=== PATIENT | male | born 1975 | race Caucasian/White ===

== ENCOUNTER → 2017-09-23 | Outpatient (CLI) | payer MEDICARE ==
[2017-09-23 15:33] LABS: HCT 46.6 % (39.0-53.0); HGB 15.7 gm/dL (13.0-17.5); MCHC 33.6 g/dL (31.0-37.0); MCV 89.1 fL (80.0-100.0); Platelet Count 224 k/uL (150-450); RBC 5.23 m/uL (4.30-5.90); RDW 13.4 % (11.5-15.5); WBC 9.5 k/uL (3.8-10.6)
--- NOTE | 2017-09-23 16:00 | CT ---
EXAMINATION TYPE: CT lower extremity RT wo con DATE OF EXAM: 09/23/2017 COMPARISON: NONE HISTORY: Painful right foot and ankle CT DLP: 318 mGycm Automated exposure control for dose reduction was used. Helical acquisition obtained through the righ t ankle. Coronal and sagittal reconstructions performed, three-dimensional reconstructions on an [employer] workstation FINDINGS: Postop changes are present, posttraumatic changes status post open reduction internal fixation for di stal diaphyseal tibial fracture and interval removal of patient's hardware. Old left fibular fracture appears healed and is angulated. The distal tibia shows areas of abnormal cortical thickening and bony excrescences as well as fissure s noted within the cortex posteriorly and also laterally more inferiorly which extend into the medull jean carlos canal. The shape of the shaft of the tibia is irregular, medullary canal also somewhat irregular with the cortex showing heterogeneous density. Heterotopic bone formation is thought present. Osteoarthritic changes present at the tibiotalar joint, subchondral geode formation is present, there is marginal spurring and joint space loss. Lucency present within the medullary space of the posteri or calcaneus is noted. No acute fracture or dislocation is evident. Bone mineralization appears reduc ed. Achilles tendon is thought to be intact. There is likely rodlike foreign body present within the soft tissues between the mid diaphyseal tibia and fibula there is only partially included on the exam. IMPRESSION: DIFFICULT TO EXCLUDE OSTEOMYELITIS, SERGIO'S ABSCESS. OSTEOARTHRITIS. ADDITIONAL FINDINGS ABOVE.
[2017-09-23 17:48] LABS: Erythrocyte Sedimentation Rate 8 mm/hr (0-15)
== END | disposition home or self-care (01) ==
LOC: RADCTMAIN 15:08
PROVIDERS: ATTEND Orthopaedic Surgery
DX: M19.071 Primary osteoarthritis, right ankle and foot (principal); Z98.890 Other specified postprocedural states
CPT/HCPCS: 83520; 85027; 85652; 86140

== ENCOUNTER 2017-10-04 09:58 | Day surgery (SDC) | payer MEDICARE ==
[2017-10-01 13:16] VITALS: BMI 38.0
[~2017-10-04 09:58] MED LIST: CLINDAMYCIN 900 MG in DEXTROSE 5% IN WATER 50 ML IVPB ONE; DEXAMETHASONE SOD PHOSPHATE 10 MG/ML 1 ML VIAL IV ONE; MIDAZOLAM 2 MG/2 ML VIAL IV PRN; ONDANSETRON 4 MG/2 ML VIAL IVP ONE; SCOPOLAMINE 1.5MG/72HR PATCH TRANSDERM ONE
[2017-10-04] MEDS ORDERED: LIDOCAINE 1% 20 ML VIAL (10MG/ML) FOR IV START INTRADERMA ONE (10:48)
[2017-10-04] MEDS: LACTATED RINGERS 1,000 ML IV SCH (10:48)
[2017-10-04] MEDS ORDERED: MIDAZOLAM 2 MG/2 ML VIAL IVP ONE (11:15)
[2017-10-04] MEDS ORDERED: fentaNYL (PF) 50 MCG/ML 2 ML AMP IVP ONE (11:40)
[2017-10-04] MEDS ORDERED: PROPOFOL 10 MG/ML 20 ML VIAL IV ONE (12:37)
[2017-10-04] MEDS ORDERED: LIDOCAINE 1% INJ 10MG/ML (20 ML MDV) ONE (12:37)
[2017-10-04] MEDS ORDERED: fentaNYL (PF) 50 MCG/ML 2 ML AMP ONE (12:37)
[2017-10-04] MEDS ORDERED: MIDAZOLAM 2 MG/2 ML VIAL ONE (12:37)
[2017-10-04] MEDS ORDERED: MORPHINE SULFATE 10 MG/ML SYRINGE ONE (12:37)
[2017-10-04] MEDS ORDERED: NEOSTIGMINE 1 MG/ML 10 ML VIAL ONE (12:37)
[2017-10-04] MEDS ORDERED: GLYCOPYRROLATE 0.2 MG/ML 2 ML VIAL ONE (12:37)
[2017-10-04] MEDS ORDERED: ROCURONIUM BROMIDE 10 MG/ML 10 ML VIAL IV ONE (12:37)
[2017-10-04] MEDS ORDERED: SUCCINYLCHOLINE CHLORIDE 100 MG/5 ML SYR IV ONE (12:37)
[2017-10-04] MEDS ORDERED: LACTATED RINGERS 1,000 ML IV ONE (13:15)
--- NOTE | 2017-10-04 14:53 | FL ---
Fluoroscopy HISTORY: Osteoarthritis posttraumatic 30 seconds fluoroscopy time supplied to the referring clinician. 8 intraoperative C-arm images docum ent the procedure. See dictated report from orthopedic surgery.
[2017-10-04] MEDS: fentaNYL (PF) 50 MCG/ML 2 ML AMP IV PRN ×4 (14:55→15:16)
[2017-10-04] MEDS ORDERED: HYDROcodone/APAP 5-325MG 1 EACH TAB PO PRN (15:14)
[2017-10-04] MEDS ORDERED: MORPHINE SULFATE/PF 10MG/10ML VL IVP PRN ×2 (15:14)
--- NOTE | 2017-10-04 15:14 | P.OP ---
Date of Procedure: 10/04/17 Preoperative Diagnosis: 1. Posttraumatic right ankle arthritis 2. History of prior open tibia and fibula fracture 3. Malunion tibia and fibula 4. Anterior ankle impingement 5. Current every day cigarette smoker 6. Obesity with BMI of 38 Postoperative Diagnosis: Same Procedure(s) Performed: 1. Right ankle cheilectomy 2. Curettage of right distal tibia cyst and injection of bone void filler 3. Application of short leg splint by physician Anesthesia: CARONA Surgeon: Myron Laguna Estimated Blood Loss (ml): 50 IV fluids (ml): 1,200 Pathology: other (Deep Cultures) Condition: stable Disposition: PACU Indications for Procedure: The patient is a 42-year-old male with a medical history significant for being a current every day cigarette smoker. He sustained an open tibia fracture in the past requiring multiple procedures both locally and in [place]. He subsequently had a second fracture that required additional surgery. He ultimately went on to heal his fractures and soft tissue wounds. He developed progressive degenerative changes in the ankle resulting from his injury and malunion. He came to see me to discuss treatment. Most of the patient's symptoms were in the anterior aspect of the ankle. There was a large prominent osteophyte over the anterolateral aspect of the ankle that was tender. He had pain with passive dorsiflexion of the ankle and his x-ray and computed tomography scan showed an osteophyte off the dorsal talar neck. He also had a cyst in the distal tibia which the radiologist read as a possible chronic osteomyelitis on his computed tomography scan. Inflammatory labs were normal. Due to the patient having mostly anterior impingement, a prominent cyst, and a prominent osteophyte off the dorsal talar neck I recommended performing a cheilectomy of the dorsal talar neck, obtaining deep cultures of the distal tibial cyst and that the cyst appeared to be not infected injecting the cyst. The patient agreed to this as he has failed a long course of nonsurgical treatment. The patient understands the potential risks and complications of surgery including but not limited to risk of anesthesia, superficial infection, deep infection, delayed wound healing, damage to blood vessels or nerves, intraoperative fracture, postoperative fracture, progression of arthritis, ankle instability, worsening of his pain, chronic pain, chronic swelling, need for further surgery including ankle fusion, DVT, PE, inability to regain preinjury level of function, generalized to satisfaction of surgery, and possibly loss of life or limb. The patient acknowledges the fact that this procedure is only addressing the anterior ankle impingement and that if he has widespread arthritis throughout the ankle he may continue to have symptoms. He provided his verbal and written consent to go forward with the above-mentioned procedure. Description of Procedure: The patient was identified in preoperative holding and the correct right leg was marked with my initials. I reviewed the consent form with the patient and his family and all their questions were answered. The patient was then brought back to the operating room by anesthesia. He was positioned on the OR table and a general anesthetic and preoperative antibiotics were administered. A tourniquet was applied to the proximal aspect of the right leg. All bony prominences were well-padded. A bump was placed under the buttock internally rotating the leg to neutral. The left leg was secured to the table with foam and tape. A ramp was placed under the right leg. The right leg was then prepped and draped in the standard sterile fashion. Prior to starting surgery timeout was performed identifying the correct patient, operative extremity, and procedure. The patient's leg was then elevated, exsanguinated with an Esmarch bandage, the tourniquet was inflated to 250 mmHg. I began by outlining an incision over the anterolateral aspect of the distal tibia. The incision was centered along the lateral aspect of the distal tibia and extended across the ankle joint in line with the fourth metatarsal. Skin incision was made with a 15 blade scalpel. Dissection was carried down carefully to the subcutaneous tissue with tenotomy scissors. A branch of the superficial peroneal nerve was identified and carefully retracted. The sensory retinaculum was identified and incised longitudinally in line with the skin incision. The anterior compartment tendons were retracted medially. The ankle joint capsule was incised in line with the skin incision. There was a pedunculated osteophyte off the dorsal lateral talar neck which was immediately visible. There were also several loose bodies within the joint capsule which were sharply excised. Using a curette and Armani the dorsal talar neck osteophyte was removed. C-arm fluoroscopy was used and the remaining lateral dorsal osteophyte was removed with a curved osteotome until there were no impinging lateral lesions. The anterior plafond was left intact to prevent anterior escape of the talus. The distal portion of the medial incision was marked out. I made a skin incision over the scar on the distal medial tibia and medial malleolus. Dissection was carried down carefully through the subcutaneous tissue to the anterior aspect of the ankle joint capsule which was incised. Medial impinging osteophytes were carefully removed with a curved osteotome until there did not appear to be any impinging lesions. Fluoroscopy was used to verify that the impinging osteophytes had been removed. Clinically there was no impingement between the dorsal talar neck and anterior plafond and maximum dorsiflexion. A 4.5 mm drill bit was then used to perforate the medial cortex the distal tibia. There is a small amount of serous fluid which was swabbed and cultured from the cyst. A curet was used to open up the cyst cavity and a small pituitary Armani was used to remove tissue from within the cyst. A 10 mm kit of pro-dense was mixed and then used to inject the cyst. Fluoroscopy verified injection of the radio opaque bone void filler into the distal tibia. Final fluoroscopic images showed no acute fractures. Both wounds were copiously irrigated. The capsule was closed medially with 0 Vicryl. The deep subcu was reapproximated using 3-0 Monocryl. The skin was closed with 3-0 nylon. Laterally the joint capsule was closed with 0 Vicryl. The retinaculum was closed with 2-0 Vicryl. The subcu was closed with 3-0 Monocryl. The skin was closed with 3-0 nylon. All instrument, sponge, and sharp counts were correct. The tourniquet was let down. A sterile dressing consisting of Betadine soaked Adaptic, 4 x 4, and web roll was applied. The drapes were taken down and a well-padded bulky Fernandez splint was placed. The patient was awoken from his anesthetic, transferred from the OR table to the [facility], and brought to PACU having tolerated the procedure well. Plan: The patient can discharge home as an outpatient. He is to remain strictly nonweightbearing on his right leg in his splint at all times until his follow-up appointment in 2 weeks.
[2017-10-04] MEDS ORDERED: MEPERIDINE 50 MG/ML SYRINGE IVP ONE (15:21)
[2017-10-04] MEDS ORDERED: diphenhydrAMINE 50 MG/ML 1 ML VIAL IVP ONE (15:23)
[2017-10-04] MEDS ORDERED: HYDROcodone/APAP 10-325MG 1 EACH TAB PO ONE (15:58)
[2017-10-04] MEDS ORDERED: MORPHINE SULFATE 10 MG/ML SYRINGE IVP ONE (16:52)
[2017-10-04] MEDS: HYDROcodone/APAP 5-325MG 1 EACH TAB PO PRN (19:59)
[2017-10-04] MEDS: MORPHINE SULFATE/PF 10MG/10ML VL IVP PRN (22:15)
[2017-10-05] MEDS: MORPHINE SULFATE/PF 10MG/10ML VL IVP PRN ×3 (01:01→09:43)
[2017-10-05] MEDS: HYDROcodone/APAP 5-325MG 1 EACH TAB PO PRN ×2 (02:03→07:51)
[2017-10-05] MEDS: LACTATED RINGERS 1,000 ML IV SCH (04:56)
[2017-10-05 08:49] VITALS: PULSE 92; RESP 20; TEMP 98
[2017-10-05] MEDS ORDERED: oxyCODONE-APAP 5-325MG 1 EACH TAB PO PRN (08:53)
--- NOTE | 2017-10-05 08:57 | P.PN ---
Subjective Progress Note Date: 10/05/17 The patient is complaining of throbbing pain in his right ankle. He denies calf or thigh pain. He denies chest pain or shortness of breath. Objective - Vital Signs Vital signs: Vital Signs Temp 98 F 10/05/17 07:00 Pulse 92 10/05/17 07:00 Resp 20 10/05/17 07:00 BP 183/89 10/05/17 07:00 Pulse Ox 93 L 10/05/17 07:00 Intake & Output 10/04/17 10/05/17 10/05/17 18:59 06:59 18:59 Intake Total 2005 500 Output Total 600 550 Balance 1406 -550 500 Weight 127.006 kg Intake: IV 2005 Oral 500 Output: Urine 550 550 Estimated Blood Loss 50 Other: Voiding Method Urinal Urinal # Voids 2 - Exam On inspection of the right leg there is a clean-appearing bulky Fernandez splint with no drainage or saturated blood. The tips the toes are warm and well perfused with brisk capillary refill. There is no pain with passive range of motion of the toes. Sensation is intact to light touch at the tips of the toes. Assessment and Plan Plan: Postoperative day #1 status post right ankle cheilectomy, aspiration, curettage , and grafting of distal tibia cyst. 1. Strict nonweightbearing right lower extremity 2. Following intraoperative cultures which are negative at this point 3. Can discharge home today when his pain is adequately controlled and he passes physical therapy
--- NOTE | 2017-10-05 09:00 | P.DS ---
Providers Date of admission: 10/04/2017 Expected date of discharge: 10/05/17 Attending physician: Myron Laguna Primary care physician: [facility] Course: The patient is a 42-year-old male who is had multiple injuries and surgeries on his right leg. He developed anterior ankle impingement and posterior Mcclure ankle arthritis. He had a computed tomography scan which showed a cyst in the distal tibia which the radiologist raised the concern for possible deep infection. Since most of the patient's symptoms were from anterior ankle impingement I recommended performing a cheilectomy. I also recommended taking deep cultures from within the medullary canal of the distal tibia and injecting with bone cement. Following an uncomplicated surgery the patient was admitted overnight for pain control. On postoperative day #1 his pain is controlled. He is going to be transitioned from IV to oral pain medications. He can discharge home when his pain is adequately controlled and he passes physical therapy. Plan - Discharge Summary Discharge Rx Participant: Yes New Discharge Prescriptions: New HYDROcodone/APAP 10-325MG [[place] 10-325] 1 tab PO Q4HR PRN #50 tab PRN Reason: Pain Aspirin 325 mg PO BID #28 tab Docusate [Colace] 100 mg PO BID #28 capsule oxyCODONE HCL/ACETAMINOPHEN [Percocet 5-325 mg] 1 tab PO Q4HR PRN #30 tab PRN Reason: Severe Pain No Action buPROPion HCL [Wellbutrin XL] 300 mg PO DAILY Simvastatin 40 mg PO DAILY Lisinopril [Zestril] 20 mg PO DAILY HYDROcodone/APAP 5-325MG [[place] 5-325] 1 tab PO Q4HR PRN PRN Reason: Pain Discharge Medication List HYDROcodone/APAP 5-325MG [[place] 5-325] 1 tab PO Q4HR PRN 10/01/17 [History] Lisinopril [Zestril] 20 mg PO DAILY 10/01/17 [History] Simvastatin 40 mg PO DAILY 10/01/17 [History] buPROPion HCL [Wellbutrin XL] 300 mg PO DAILY 10/01/17 [History] Aspirin 325 mg PO BID #28 tab 10/04/17 [Rx] Docusate [Colace] 100 mg PO BID #28 capsule 10/04/17 [Rx] HYDROcodone/APAP 10-325MG [[place] 10-325] 1 tab PO Q4HR PRN #50 tab 10/04/17 [Rx] oxyCODONE HCL/ACETAMINOPHEN [Percocet 5-325 mg] 1 tab PO Q4HR PRN #30 tab [Rx] Follow up Appointment(s)/Referral(s): Myron Laguna MD [Medical Doctor] - 2 Weeks Activity/Diet/Wound Care/Special Instructions: 1. Non-weight bearing on your right leg 2. Keep splint clean and dry 3. Ice and elevate your leg 4. Take aspirin 325 mg twice a day to prevent blood clots. 5. Follow-up in office in 2-weeks 6. NEXT DOSE OF PAIN MEDICATION CAN BE TAKEN AT 8PM. 7. ELEVATE LEG HIGHER THAN YOUR HEART. Discharge Disposition: HOME SELF-CARE
[2017-10-05 12:25] VITALS: BP 120/80
--- NOTE | 2017-10-05 15:14 | CONS ---
CONSULTATION DATE OF CONSULTATION: October 05, 2017. REASON FOR CONSULTATION: Medical management requested by Dr. Laguna. CONSULTATION: This is a 42-year-old patient who underwent surgery on the right ankle. Chronic stable medical conditions include hypertension, hyperlipidemia, obesity. The patient is on Wellbutrin for smoking, element of depression at home. The patient's depression is also stable. The patient has had some pain at the operative site. The patient is on disability. Denies any chest pain or shortness of breath. The patient did tolerate his meals today. No nausea, vomiting. REVIEW OF SYSTEMS: CONSTITUTIONAL: None. HEENT none. Respiratory none. Cardiovascular none. Gastrointestinal none. Genitourinary: None. Musculoskeletal: Pain in the right ankle. Dermatological: Tattoos. Lymphatics none. Psychiatry none. Neurological: None. Psychiatry: Depression controlled. PAST MEDICAL HISTORY: Of hypertension, hyperlipidemia, depression, nicotine dependence. PAST SURGICAL HISTORY: Right leg fracture surgery, left rotator cuff repair. Past psych history is some anxiety and depression. SOCIAL HISTORY: The patient has quit for 15 years, a few months ago started smoking a pack a day. The patient lives with her father. Is not employed. On disability. Alcohol occasionally. FAMILY HISTORY: Reviewed, noncontributory to presentation. HOME MEDICATIONS: 1. Wellbutrin XL 300 mg a day. 2. Zestril 20 mg a day. 3. Percocet. 4. Aspirin for DVT prophylaxis. ALLERGIES: PENICILLIN. PHYSICAL EXAMINATION: On examination, temperature 98, pulse 92, respiratory 20, blood pressure 183/89, pulse ox 98% on room air. Blood pressure of 114/54. GENERAL APPEARANCE: Well built, BMI 38. Sitting up in bed comfortable. Eyes: Pupils equal. Conjunctivae normal. HEENT external appearance of nose and ears normal. Oral cavity normal. Neck JVD not raised. Mass not palpable. Respiratory effort lungs are clear. Cardiovascular 1st and 2nd sounds normal. No edema. ABDOMEN: Soft and nontender. Liver and spleen not palpable. Lymphatics: No lymph nodes palpable in the neck and axilla. PSYCHIATRY: Alert and oriented times three. Mood and affect normal. Neurological: Pupils equal. Cranial nerves grossly intact. Power and sensation grossly intact. Extremities: Right leg in a cast. Dermatological: Several tattoos are present. INVESTIGATIONS: White count 9.5, hemoglobin 15.7. ASSESSMENT: 1. Right ankle surgery. 2. Obesity BMI 38. 3. Hyperlipidemia. 4. Essential hypertension. 5. Depression/anxiety not otherwise specified. 6. Chronic nicotine dependence, patient is a cigarette smoker. PLAN: Patient's home medications are to be resumed. The patient is to continue Wellbutrin both for depression and smoking cessation. Patient also did get a nicotine patch. Did talk to patient about weight loss measures and should follow up with the dietitian, ask him to control his calories. Smoking cessation was discussed with the patient including long-term affects including healing of his surgery. At least 3 minutes was spent for this. Thank you Dr. Laguna. Copy to Dr. Aren Manjarrez in [facility]. Thank you, Dr. Laguna. MMERNESTINEL / VANESAN: [id number] /
== END 2017-10-05 13:10 | disposition home or self-care (01) ==
LOC: OR 09:58 → 3SUR 18:29 → OR 10-05 13:10
PROVIDERS: ATTEND Orthopaedic Surgery
DX: M19.171 Post-traumatic osteoarthritis, right ankle and foot (principal); M25.771 Osteophyte, right ankle; M85.461 Solitary bone cyst, right tibia and fibula; M24.071 Loose body in right ankle; M25.871 Other specified joint disorders, right ankle and foot; F17.210 Nicotine dependence, cigarettes, uncomplicated; E66.9 Obesity, unspecified; Z68.38 Body mass index [BMI] 38.0-38.9, adult; I10 Essential (primary) hypertension; E78.5 Hyperlipidemia, unspecified; F41.9 Anxiety disorder, unspecified; F32.9 Major depressive disorder, single episode, unspecified; Z79.1 Long term (current) use of non-steroidal anti-inflammatories (NSAID); Z79.891 Long term (current) use of opiate analgesic; Z79.899 Other long term (current) drug therapy; Z88.0 Allergy status to penicillin
CPT/HCPCS: 28100; 27620; 27635; C1713; J2250; J1200; J1100; J2710; J2175; J2270 ×3; J2405; J2001; J3010; J0330; J2704

== ENCOUNTER → 2019-05-21 | Outpatient (CLI) | payer MEDICARE, OTHER ==
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
[2019-05-21 12:05] VITALS: BP 131/87; PULSE 84; TEMP 97.7; BMI 46.6
== END ==
LOC: BARWHC3 10:30
PROVIDERS: ATTEND Surgery Plastic and Reconstructive Surgery
DX: Z48.815 Encounter for surgical aftercare following surgery on the digestive system (principal); F17.210 Nicotine dependence, cigarettes, uncomplicated
CPT/HCPCS: 99211

== ENCOUNTER → 2019-05-28 | Outpatient (CLI) | payer MEDICARE, OTHER ==
[2019-05-28 15:31] LABS: HCT 47.1 % (39.0-53.0); MCH 31.9 pg (25.0-35.0); MCHC 33.9 g/dL (31.0-37.0); MCV 94.3 fL (80.0-100.0); Mean Platelet Volume 6.4; Platelet Count 226 k/uL (150-450); RDW 13.3 % (11.5-15.5); WBC 7.7 k/uL (3.8-10.6)
[2019-05-28 15:35] LABS: INR 0.9 (<1.2); Partial Thromboplastin Time 24.7 sec (22.0-30.0)
[2019-05-28 20:45] LABS: % Iron Saturation 31.18 (15.00-50.00); African American GFR (CKD) 104.9 (60.0-200.0); Albumin 4.6 g/dL (3.80-4.90); Albumin/Globulin Ratio 2.09 (1.60-3.17); Calcium 9.7 mg/dL (8.7-10.3); Chol/HDL Ratio 4.02; Globulin 2.2 g/dL (1.6-3.3); LDL Cholesterol,Calculated 89.2 mg/dL (0.0-131.0); Magnesium 1.6 mg/dL (1.5-2.4); Non-African American GFR(CKD) 90.5 (60.0-200.0); Phosphorus 4.2 mg/dL (2.4-5.1); Potassium 4.3 mmol/L (3.5-5.5); Total Bilirubin 0.4 mg/dL (0.3-1.2); Total Protein 6.8 g/dL (6.2-8.2); VLDL Calculation 52.8 mg/dL (5.00-40.00)
[2019-05-28 20:53] LABS: Ferritin 37.8 ng/mL (22.0-322.0)
[2019-05-28 20:55] LABS: Folate, Serum 6.5 ng/mL
[2019-05-29 04:01] LABS: Hemoglobin A1C 5.5 % (4.0-6.0)
[2019-05-29 12:29] LABS: Zinc, Serum 89 ug/dL (60-130)
[2019-05-30 14:40] LABS: Vitamin A 52 ug/dL (38-106)
== END | disposition home or self-care (01) ==
LOC: LABWHC1 14:36
PROVIDERS: ATTEND Surgery Plastic and Reconstructive Surgery
DX: E66.01 Morbid (severe) obesity due to excess calories (principal); E21.1 Secondary hyperparathyroidism, not elsewhere classified; E89.1 Postprocedural hypoinsulinemia; D50.9 Iron deficiency anemia, unspecified; K90.9 Intestinal malabsorption, unspecified; E55.9 Vitamin D deficiency, unspecified; K74.1 Hepatic sclerosis; N19 Unspecified kidney failure; K50.90 Crohn's disease, unspecified, without complications
CPT/HCPCS: 36415; 80053; 80061; 82306; 82525; 82607; 82728; 82746; 83036; 83540; 83550; 83735; 83970; 84100; 84134; 84255; 84425; 84443; 84590; 84630; 85027; 85610; 85730

== ENCOUNTER 2019-06-22 11:21 | Day surgery (SDC) | payer MEDICARE, OTHER ==
[2019-06-18 13:07] VITALS: BMI 44.7
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
[~2019-06-22 11:21] MED LIST changes: -CLINDAMYCIN 900 MG in DEXTROSE 5% IN WATER 50 ML IVPB ONE; -DEXAMETHASONE SOD PHOSPHATE 10 MG/ML 1 ML VIAL IV ONE; +LACTATED RINGERS 1,000 ML IV SCH; +LIDOCAINE 1% 20 ML VIAL (10MG/ML) FOR IV START INTRADERMA PRN; -MIDAZOLAM 2 MG/2 ML VIAL IV PRN; -ONDANSETRON 4 MG/2 ML VIAL IVP ONE; -SCOPOLAMINE 1.5MG/72HR PATCH TRANSDERM ONE
[2019-06-22 11:43] VITALS: TEMP 98.4
--- NOTE | 2019-06-22 12:25 | P.PCN ---
Date of Procedure: 06/22/19 Description of Procedure: PREOPERATIVE DIAGNOSIS: Gastroesophageal reflux disease. Morbid obesity. POSTOPERATIVE DIAGNOSIS: Morbid obesity. Gastritis. Gastroesophageal reflux disease. OPERATION: Esophagogastroduodenoscopy with biopsies along antrum. SURGEON: Lea Garcia MD ANESTHESIA: MAC. INDICATIONS: The patient is a 43-year-old male who presents with a history of reflux disease. Benefits and risks of the procedure were described. Informed consent was obtained. DESCRIPTION: The patient was brought into the endoscopy suite and laid in the left lateral decubitus position. An Olympus gastroscope was passed along the posterior oropharynx down to the distal esophagus where the squamocolumnar junction was encountered at 45 cm from the incisors. The stomach was entered and no bile reflux was found. Additional findings are listed below. Biopsies with cold forceps were obtained of the antrum. The first through third portion of the duodenum was examined and unremarkable. Retroflexion of the scope confirmed Hill grade 2 lower esophageal valve. The squamocolumnar junction demonstrated LA grade B erosive esophagitis. The stomach was desufflated. The patient tolerated the procedure well. FINDINGS: Squamocolumnar junction 45 cm from the incisors. Diaphragmatic hiatus at 45 cm. Hill grade 2 lower esophageal valve. LA grade B erosive esophagitis. No active duodenitis. Chronic gastritis RECOMMENDATIONS: Upper endoscopy as needed. Plan - Discharge Summary Discharge Rx Participant: No New Discharge Prescriptions: No Action Simvastatin 40 mg PO HS Lisinopril [Zestril] 20 mg PO QAM HYDROcodone/APAP 10-325MG [[place] 10-325] 1 tab PO Q4HR PRN #50 tab PRN Reason: Pain Venlafaxine HCl [Effexor XR] 225 mg PO DAILY Nicotine 21Mg/24Hr Patch [Habitrol] 1 each TRANSDERM DAILY Discharge Medication List Lisinopril [Zestril] 20 mg PO QAM 10/01/17 [History] Simvastatin 40 mg PO HS 10/01/17 [History] HYDROcodone/APAP 10-325MG [[place] 10-325] 1 tab PO Q4HR PRN #50 tab 10/04/17 [Rx] Nicotine 21Mg/24Hr Patch [Habitrol] 1 each TRANSDERM DAILY 06/18/19 [History] Venlafaxine HCl [Effexor XR] 225 mg PO DAILY 06/18/19 [History] Follow up Appointment(s)/Referral(s): [facility] [NON-STAFF] - 07/22/19 Patient Instructions/Handouts: Gastroesophageal Reflux Disease (DC) Discharge Disposition: HOME SELF-CARE
[2019-06-22 12:28] VITALS: RESP 16
[2019-06-22 12:50] VITALS: BP 130/75; PULSE 82
== END 2019-06-22 13:19 | disposition home or self-care (01) ==
LOC: ORWHC2ENDO 11:21
PROVIDERS: ATTEND Surgery Plastic and Reconstructive Surgery
DX: K29.50 Unspecified chronic gastritis without bleeding (principal); B96.81 Helicobacter pylori [H. pylori] as the cause of diseases classified elsewhere; K21.0 Gastro-esophageal reflux disease with esophagitis; K22.10 Ulcer of esophagus without bleeding; E66.01 Morbid (severe) obesity due to excess calories; Z79.899 Other long term (current) drug therapy; E78.5 Hyperlipidemia, unspecified; I10 Essential (primary) hypertension; Z87.891 Personal history of nicotine dependence; Z88.0 Allergy status to penicillin; Z68.41 Body mass index [BMI] 40.0-44.9, adult
CPT/HCPCS: 43239; 88305; 88342

== ENCOUNTER → 2019-07-09 | Outpatient (CLI) | payer MEDICARE, OTHER ==
[~2019-07-09] MED LIST changes: -LACTATED RINGERS 1,000 ML IV SCH; -LIDOCAINE 1% 20 ML VIAL (10MG/ML) FOR IV START INTRADERMA PRN; +REGADENOSON 0.4 MG/5 ML SYRINGE IV ONE
--- NOTE | 2019-07-09 11:53 | NM ---
EXAMINATION TYPE: NM stress lexiscan cardiolite DATE OF EXAM: 07/09/2019 COMPARISON: NONE HISTORY: Preprocedural exam TECHNIQUE: After the intravenous administration of 10 mCi Tc 99m Sestamibi - Cardiolite resting SPEC T images acquired 45 minutes post injection. The patient received 0.4mg Lexiscan, 24.7 mCi Tc 99m Sestamibi - Stress images obtained [address] injection FINDINGS: Review of stress and rest SPECT images demonstrates no distinct perfusion abnormality. Gated analysi s shows normal wall motion with an estimated left ventricular ejection fraction of 61 %. IMPRESSION: No scintigraphic evidence for reversible ischemia.
--- NOTE | 2019-07-09 12:08 | EST ---
EXERCISE STRESS AGE: 43 SEX: M HT: 72" WT: 320 PROTOCOL: Lexiscan Cardiolite Stress Test HEART RATE REST: 71 BLOOD PRESSURE REST: 136/74 MAXIMUM HEART RATE ACHIEVED: 92 MAXIMUM BLOOD PRESSURE: 181/64 INDICATIONS: Preoperative. CLINICAL INFORMATION: Baseline rhythm sinus mechanism rate 71, normal intervals. Baseline blood pressure 136/74 mmHg. Patient received an injection of Lexiscan. Electrocardiograph monitoring revealed no evidence of diagnostic ischemic ST deviation. Cardiolite was injected per protocol. CONCLUSION: 1. Nondiagnostic electrocardiograph stress testing. 2. Nuclear images will be reported separately. MMODL / IJN: [id number] /
--- NOTE | 2019-07-10 10:25 | ECHOF ---
Referral Reason:Z01.818 encounter for other preprocedural exam MEASUREMENTS -------- HEIGHT: 182.9 cm WEIGHT: 145.1 kg BP: RVIDd: 3.5 cm (< 3.3) IVSd: 1.5 cm (0.6 - 1.1) LVIDd: 5.3 cm (3.9 - 5.3) LVPWd: 1.4 cm (0.6 - 1.1) IVSs: 2.0 cm LVIDs: 3.1 cm LVPWs: 1.7 cm LA Diam: 3.2 cm (2.7 - 3.8) Ao Diam: 3.4 cm (2.0 - 3.7) AV Cusp: 2.2 cm (1.5 - 2.6) MV EXCURSION: 16.009 mm (> 18.000) MV EF SLOPE: 76 mm/s (70 - 150) EPSS: 0.7 cm MV E Bj: 0.99 m/s MV DecT: 245 ms MV A Bj: 0.80 m/s MV E/A Ratio: 1.25 FINDINGS -------- Sinus rhythm. This was a technically difficult study with suboptimal views. The left ventricular size is normal. There is moderate concentric left ventricular hypertrophy. O verall left ventricular systolic function is normal with, an EF between 55 - 60 %. The right ventricle is mildly enlarged. The left atrial size is normal. The right atrial size is normal. 5 ml of Lumason was utilized for enhancement of images. The aortic valve was not well visualized. The mitral valve was not well visualized. The tricuspid valve was not well visualized. The pulmonic valve was not well visualized. The aortic root size is normal. Normal inferior vena cava with normal inspiratory collapse consistent with estimated right atrial pre ssure of 5 mmHg. Echo free space may represent effusion or a pericardial fat pad. CONCLUSIONS -------- 1. Sinus rhythm. 2. This was a technically difficult study with suboptimal views. 3. The left ventricular size is normal. 4. There is moderate concentric left ventricular hypertrophy. 5. Overall left ventricular systolic function is normal with, an EF between 55 - 60 %. 6. The right ventricle is mildly enlarged. 7. The left atrial size is normal. 8. 5 ml of Lumason was utilized for enhancement of images. 9. The aortic valve was not well visualized. 10. The mitral valve was not well visualized. 11. The pulmonic valve was not well visualized. 12. Echo free space may represent effusion or a pericardial fat pad. HIGH VOLTAGE ELECTRICIAN: Lorena Eduardo RDCS
--- NOTE | 2019-07-29 15:20 | P.PN ---
Subjective Progress Note Date: 07/29/19 HPI: He comes in for follow up from upper scope. He has completed stress test. He is still smoking. He is looking into the sleeve gastrectomy. He is on a nicotine patches. His last tobacco was 3 weeks ago. LABS: H. pylori positibe STUDIES: Stress test reviewed ASSESSMENT: 1. Tobacco abuse 2. H pylori positive PLAN: 1. Sent omeprazole, clarithromycin, flagyl for h. pylori 2. Needs urine nicotine test 3. Will need 1 month from tobacco products 4. Sleeve following nicotine abstinence and h. pylori clearance
== END | disposition home or self-care (01) ==
LOC: RADNMMAIN 08:48
PROVIDERS: ATTEND Family Medicine
DX: Z01.818 Encounter for other preprocedural examination (principal)
CPT/HCPCS: 93017; 78452; C8929; A9500; J2785; Q9950; 93306

== ENCOUNTER → 2019-07-29 | Outpatient (CLI) | payer MEDICARE, OTHER ==
[2019-07-29 14:18] VITALS: BP 145/83; PULSE 92; TEMP 97.9; BMI 46.0
--- NOTE | 2019-07-29 15:27 | P.PN ---
Subjective Progress Note Date: 07/29/19 DATE OF SERVICE: 07/29/2019 CHIEF COMPLAINT: Morbid obesity HISTORY OF PRESENT ILLNESS: Gopal Tapia is a 43-year-old male who comes with lifelong morbid obesity. As a result of his obesity, he has developed hypertension, sleep apnea, and osteoarthritis of the knees. He has completed medical supervised weight loss. He comes in with weigh loss evaluation. He has been smoking and is working on tobacco cessation. At height of 5 feet 10 inches, her ideal body weight is 173 pounds. He comes in 320 pounds from 324 pounds, 2 months ago. He has lost 4 pounds in 2 months. His body mass index is 46.6 down to 46.1. He is 147 pounds overweight. PAST MEDICAL HISTORY: 1. Morbid obesity due to excess calories 2. Body mass index of 46.6, initial 3. Osteoarthritis of the knees. 4. Osteoarthritis of the shoulder 5. Hypertensive heart disease. 6. Gastroesophageal reflux disease 7. Hyperlipidemia 8. Obstructive sleep apnea 9. Anxiety disorder 10. Chronic pain syndrome 11. Depressive disorder PAST SURGICAL HISTORY: 1. Right leg surgery 2. Left rotator cuff surgery HOME MEDICATIONS: Home Medications Medication Instructions Recorded Confirmed Lisinopril [Zestril] 20 mg PO QAM 10/01/17 06/18/19 Simvastatin 40 mg PO HS 10/01/17 06/18/19 Nicotine 21Mg/24Hr Patch [Habitrol] 1 each TRANSDERM DAILY 06/18/19 06/18/19 Venlafaxine HCl [Effexor XR] 225 mg PO DAILY 06/18/19 06/18/19 Previous Rx's Medication Instructions Recorded HYDROcodone/APAP 10-325MG [[place] 1 tab PO Q4HR PRN #50 tab 10/04/17 10-325] ALLERGIES: Allergies Allergy/AdvReac Type Severity Reaction Status Date / Time Penicillins Allergy Anaphylaxis Verified 06/18/19 11:56 SOCIAL HISTORY: Past tobacco use. FAMILY HISTORY: No family history of ulcerative colitis disease or Crohn's disease. Family history of morbid obesity. No lupus in the family. No reports of stomach or esophageal cancer. REVIEW OF ORGAN SYSTEMS: CONSTITUTIONAL: At height of 5 feet 10 inches, his ideal body weight is 173 pounds. His highest weight 324 pounds. His body mass index is 46.6. He is 151 pounds overweight. HEENT: Denies any active troubles with vision or hearing. ENDOCRINE: No diabetes. No hypothyroidism. CARDIOVASCULAR: No palpitations or heart attacks or chest pain. RESPIRATORY: Has daytime somnolence. No pneumonia GASTROINTESTINAL: Denies any bright red blood per rectum. No diarrhea. No constipation. MUSCULOSKELETAL: Has lower back pain and joint pain. Has osteoarthritis of the knees. NEURO: No headaches. No seizure disorders. PSYCH: Has depression. No suicidal ideation. Has anxiety. RHEUMATOLOGIC: No lupus. No rheumatoid arthritis. HEMATOLOGIC: Denies any abnormal bleeding or bruising. No personal history of DVTs. SKIN: No rash. No skin cancer. PHYSICAL EXAM: VITAL SIGNS: Height 5 foot 10 inches, weight 320 pounds. BMI 46.1 Vital Signs Temp 97.9 F 07/29/19 14:12 Pulse 92 07/29/19 14:12 Resp BP 145/83 07/29/19 14:12 Pulse Ox GENERAL: Well-developed in no acute distress. HEENT: No scleral icterus. Extraocular movements grossly intact. Hears conversational speech. No nasal drainage. NECK: Supple without lymphadenopathy. CHEST: Nonlabored respirations with equal bilateral excursions. CARDIOVASCULAR: Regular rate and regular rhythm. Distal 2+ pulses. ABDOMEN: Obese, soft, nontender, nondistended. MUSCULOSKELETAL: No clubbing, cyanosis. Gross strength 5/5 distal lower extremities. NEURO: No focal or lateralizing signs. Cranial nerves 2 through 12 grossly within normal limits. PSYCH: Appropriate affect. Alert and oriented to person, place and time. SKIN: Good skin turgor. Well perfused. EGD FINDINGS: Squamocolumnar junction 45 cm from the incisors. Diaphragmatic hiatus at 45 cm. Hill grade 2 lower esophageal valve. LA grade B erosive esophagitis. No active duodenitis. Chronic gastritis Final Pathologic Diagnosis GASTRIC ANTRUM, BIOPSY: Chronic active gastritis. Helicobacter pylori immunoperoxidase stain is positive for rare H. pylori organisms (controls appropriate). ASSESSMENT: 1. Morbid obesity due to excess calories 2. Body mass index of 46.6, initial 3. Osteoarthritis of the knees. 4. Osteoarthritis of the shoulder 5. Hypertensive heart disease. 6. Gastroesophageal reflux disease 7. Hyperlipidemia 8. Obstructive sleep apnea 9. Anxiety disorder 10. Chronic pain syndrome 11. Depressive disorder 12. H. pylori infection PLAN: 1. Bariatric options between a sleeve, band and a [place]-en-Y gastric bypass were reviewed in detail. The patient elected for a sleeve gastrectomy. Robotic assisted approach described. 2. The [place] [facility] Data was also reviewed with benefits and risks as described. 3. An 8 page second-generation bariatric consent form was reviewed in detail including potential of bleeding, infection, leaks, adequate weight loss, nutritional deficiencies which the patient demonstrated understanding of the risks. 4. A 2 week high-protein low caloric 800 kcal diet described to address hepatomegaly. 5. Preoperative labs including complete metabolic panel and CBC with type and screen recommended. 6. DVT prophylaxis per [place] [facility]. 7. Antibiotic prophylaxis. 8. Inpatient hospitalization anticipated for more than 2 nights. 9. All questions and concerns were addressed with the patient. 10. He will urine nicotine test for complete tobacco cessation for 4 weeks. 11. He has been prescribed H pylori treatment. Laboratory Last Values Urine Cotinine 1030.2 ng/mL (<5.0) H 07/29/19 14:00 Urine Nicotine 427.6 ng/mL (<2.0) H 07/29/19 14:00 Urine Anabasine <2.0 ng/mL (<2.0) 07/29/19 14:00 Objective - Vital Signs Vital signs: Vital Signs Temp 97.9 F 07/29/19 14:12 Pulse 92 07/29/19 14:12 Resp BP 145/83 07/29/19 14:12 Pulse Ox Intake & Output 07/28/19 07/29/19 07/29/19 18:59 06:59 18:59 Weight 145.603 kg
[2019-08-01 17:41] LABS: Anabasine Urine <2.0 ng/mL (<2.0)
--- NOTE | 2019-09-27 17:06 | P.PN ---
Subjective Progress Note Date: 07/29/19 DATE OF SERVICE: 07/29/2019 CHIEF COMPLAINT: Morbid obesity HISTORY OF PRESENT ILLNESS: Gopal Tapia is a 43-year-old male who comes with lifelong morbid obesity. As a result of his obesity, he has developed hypertension, sleep apnea, and osteoarthritis of the knees. He has completed medical supervised weight loss. He comes in with weigh loss evaluation. He has been smoking and is working on tobacco cessation. [place] [facility] [place] test. He is still smoking. He is looking into the sleeve gastrectomy. He is on a nicotine patches. His last tobacco was 3 weeks ago. At height of 5 feet 10 inches, her ideal body weight is 173 pounds. He comes in 320 pounds from 324 pounds, 2 months ago. He has lost 4 pounds in 2 months. His body mass index is 46.6 down to 46.1. He is 147 pounds overweight. PAST MEDICAL HISTORY: 1. Morbid obesity due to excess calories 2. Body mass index of 46.6, initial 3. Osteoarthritis of the knees. 4. Osteoarthritis of the shoulder 5. Hypertensive heart disease. 6. Gastroesophageal reflux disease 7. Hyperlipidemia 8. Obstructive sleep apnea 9. Anxiety disorder 10. Chronic pain syndrome 11. Depressive disorder PAST SURGICAL HISTORY: 1. Right leg surgery 2. Left rotator cuff surgery HOME MEDICATIONS: Home Medications Medication Instructions Recorded Confirmed Lisinopril [Zestril] 20 mg PO QAM 10/01/17 06/18/19 Simvastatin 40 mg PO HS 10/01/17 06/18/19 Nicotine 21Mg/24Hr Patch [Habitrol] 1 each TRANSDERM DAILY 06/18/19 06/18/19 Venlafaxine HCl [Effexor XR] 225 mg PO DAILY 06/18/19 06/18/19 Previous Rx's Medication Instructions Recorded HYDROcodone/APAP 10-325MG [[place] 1 tab PO Q4HR PRN #50 tab 10/04/17 10-325] ALLERGIES: Allergies Allergy/AdvReac Type Severity Reaction Status Date / Time Penicillins Allergy Anaphylaxis Verified 06/18/19 11:56 SOCIAL HISTORY: Past tobacco use. FAMILY HISTORY: No family history of ulcerative colitis disease or Crohn's disease. Family history of morbid obesity. No lupus in the family. No reports of stomach or esophageal cancer. REVIEW OF ORGAN SYSTEMS: CONSTITUTIONAL: At height of 5 feet 10 inches, his ideal body weight is 173 pounds. His highest weight 324 pounds. His body mass index is 46.6. He is 151 pounds overweight. HEENT: Denies any active troubles with vision or hearing. ENDOCRINE: No diabetes. No hypothyroidism. CARDIOVASCULAR: No palpitations or heart attacks or chest pain. RESPIRATORY: Has daytime somnolence. No pneumonia GASTROINTESTINAL: Denies any bright red blood per rectum. No diarrhea. No constipation. MUSCULOSKELETAL: Has lower back pain and joint pain. Has osteoarthritis of the knees. NEURO: No headaches. No seizure disorders. PSYCH: Has depression. No suicidal ideation. Has anxiety. RHEUMATOLOGIC: No lupus. No rheumatoid arthritis. HEMATOLOGIC: Denies any abnormal bleeding or bruising. No personal history of DVTs. SKIN: No rash. No skin cancer. PHYSICAL EXAM: VITAL SIGNS: Height 5 foot 10 inches, weight 320 pounds. BMI 46.1 Vital Signs Temp 97.9 F 07/29/19 14:12 Pulse 92 07/29/19 14:12 Resp BP 145/83 07/29/19 14:12 Pulse Ox GENERAL: Well-developed in no acute distress. HEENT: No scleral icterus. Extraocular movements grossly intact. Hears conversational speech. No nasal drainage. NECK: Supple without lymphadenopathy. CHEST: Nonlabored respirations with equal bilateral excursions. CARDIOVASCULAR: Regular rate and regular rhythm. Distal 2+ pulses. ABDOMEN: Obese, soft, nontender, nondistended. MUSCULOSKELETAL: No clubbing, cyanosis. Gross strength 5/5 distal lower extremities. NEURO: No focal or lateralizing signs. Cranial nerves 2 through 12 grossly within normal limits. PSYCH: Appropriate affect. Alert and oriented to person, place and time. SKIN: Good skin turgor. Well perfused. EGD FINDINGS: Squamocolumnar junction 45 cm from the incisors. Diaphragmatic hiatus at 45 cm. Hill grade 2 lower esophageal valve. LA grade B erosive esophagitis. No active duodenitis. Chronic gastritis Final Pathologic Diagnosis GASTRIC ANTRUM, BIOPSY: Chronic active gastritis. Helicobacter pylori immunoperoxidase stain is positive for rare H. pylori organisms (controls appropriate). STUDIES: Lexican stress test without reversible ischemic heart disease. Ejection fraction over 55%. ASSESSMENT: 1. Morbid obesity due to excess calories 2. Body mass index of 46.6, initial 3. Osteoarthritis of the knees. 4. Osteoarthritis of the shoulder 5. Hypertensive heart disease. 6. Gastroesophageal reflux disease 7. Hyperlipidemia 8. Obstructive sleep apnea 9. Anxiety disorder 10. Chronic pain syndrome 11. Depressive disorder 12. H. pylori infection 13. Tobacco abuse PLAN: 1. Bariatric options between a sleeve, band and a [place]-en-Y gastric bypass were reviewed in detail. The patient elected for a sleeve gastrectomy. Robotic assisted approach described. 2. The [place] [facility] Data was also reviewed with benefits and risks as described. 3. An 8 page second-generation bariatric consent form was reviewed in detail including potential of bleeding, infection, leaks, adequate weight loss, nutritional deficiencies which the patient demonstrated understanding of the risks. 4. A 2 week high-protein low caloric 800 kcal diet described to address hepatomegaly. 5. Preoperative labs including complete metabolic panel and CBC with type and screen recommended. 6. DVT prophylaxis per [place] [facility]. 7. Antibiotic prophylaxis. 8. Inpatient hospitalization anticipated for more than 2 nights. 9. All questions and concerns were addressed with the patient. 10. He needs urine nicotine test for complete tobacco cessation for 4 weeks. 11. He has been prescribed H pylori treatment including omeprazole, clarithromycin, flagyl for h. pylori 12. Will need 1 month from tobacco products 13. May proceed with sleeve gastrectomy following nicotine abstinence and h. pylori clearance 14. He is elevated risk for perioperative complications with active tobacco abuse Objective - Vital Signs Vital signs: Vital Signs Temp 97.9 F 07/29/19 14:12 Pulse 92 07/29/19 14:12 Resp BP 145/83 07/29/19 14:12 Pulse Ox
== END | disposition home or self-care (01) ==
LOC: BARWHC3 13:52
PROVIDERS: ATTEND Surgery Plastic and Reconstructive Surgery
DX: E66.01 Morbid (severe) obesity due to excess calories (principal); M17.0 Bilateral primary osteoarthritis of knee; M19.019 Primary osteoarthritis, unspecified shoulder; I11.9 Hypertensive heart disease without heart failure; K21.9 Gastro-esophageal reflux disease without esophagitis; E78.5 Hyperlipidemia, unspecified; G47.33 Obstructive sleep apnea (adult) (pediatric); F41.8 Other specified anxiety disorders; G89.4 Chronic pain syndrome; A04.8 Other specified bacterial intestinal infections; Z68.42 Body mass index [BMI] 45.0-49.9, adult; Z79.899 Other long term (current) drug therapy; Z79.891 Long term (current) use of opiate analgesic; Z72.0 Tobacco use; Z88.0 Allergy status to penicillin; Z83.49 Family history of other endocrine, nutritional and metabolic diseases
CPT/HCPCS: G0480; G0463; 80323; 99211

== ENCOUNTER → 2019-08-03 | Outpatient (CLI) | payer MEDICARE, OTHER ==
[2019-08-03 13:08] VITALS: BMI 46.6
== END | disposition home or self-care (01) ==
LOC: BARWHC3 08:53
PROVIDERS: ATTEND Surgery Plastic and Reconstructive Surgery
DX: E66.01 Morbid (severe) obesity due to excess calories (principal); Z68.42 Body mass index [BMI] 45.0-49.9, adult
CPT/HCPCS: 97804

== ENCOUNTER → 2019-08-26 | Outpatient (CLI) | payer MEDICARE, OTHER ==
[2019-08-26 09:10] LABS: Basophils % (A) 1 %; Eosinophils # (A) 0.1 k/uL (0-0.7); Eosinophils % (A) 2 %; HCT 47.3 % (39.0-53.0); HGB 15.7 gm/dL (13.0-17.5); Lymphocytes # (A) 1.9 k/uL (1.0-4.8); Lymphocytes % (A) 25 %; MCH 30.9 pg (25.0-35.0); MCHC 33.3 g/dL (31.0-37.0); MCV 92.8 fL (80.0-100.0); Mean Platelet Volume 7.5; Monocytes # (A) 0.5 k/uL (0-1.0); Monocytes % (A) 6 %; Neutrophils # (A) 4.9 k/uL (1.3-7.7); Neutrophils % (A) 64 %; Platelet Count 214 k/uL (150-450); RBC 5.09 m/uL (4.30-5.90); RDW 12.7 % (11.5-15.5); WBC 7.7 k/uL (3.8-10.6)
[2019-08-26 09:19] LABS: ALT 41 U/L (4-49); AST 37 U/L (17-59); African American GFR (CKD) >90 (>60 ml/min/1.73 sqM); Albumin 4.7 g/dL (3.5-5.0); Alkaline Phosphatase 74 U/L (38-126); Anion Gap 10 mmol/L; Blood Urea Nitrogen 11 mg/dL (9-20); Calcium 9.7 mg/dL (8.4-10.2); Carbon Dioxide 28 mmol/L (22-30); Chloride 102 mmol/L (98-107); Glucose 132 mg/dL (74-99); Non-African American GFR(CKD) >90 (>60 ml/min/1.73 sqM); Potassium 5.4 mmol/L (3.5-5.1); Sodium 140 mmol/L (137-145); Total Bilirubin 0.6 mg/dL (0.2-1.3); Total Protein 7.8 g/dL (6.3-8.2)
[2019-08-31 08:40] LABS: Anabasine Urine <2.0 ng/mL (<2.0)
== END | disposition home or self-care (01) ==
LOC: LABPAT 08:33
PROVIDERS: ATTEND Surgery Plastic and Reconstructive Surgery
DX: Z01.812 Encounter for preprocedural laboratory examination (principal); F17.200 Nicotine dependence, unspecified, uncomplicated
CPT/HCPCS: 80053; 85025; 36415; G0480; 80323; 86850; 86900; 86901

== ENCOUNTER 2019-08-31 06:57 | Inpatient (IN) | payer MEDICARE, OTHER ==
--- NOTE | 2019-08-30 20:08 | P.GSHP ---
History of Present Illness H&P Date: 08/31/19 DATE OF SERVICE: 08/31/2019 CHIEF COMPLAINT: Morbid obesity. HISTORY OF PRESENT ILLNESS: Gopal Tapia is a 44-year-old male who comes with lifelong morbid obesity. He has gastroesophageal reflux disease. He is a chronic pain patient. He has troubles with right knee after leg fracture and bone grafts with shoulder surgery. He still has his gallbladder. No fatty food intolerance. No stomach or esophageal cancer in himself or family. No diarrhea. All his family has obesity. His highest weight is 324 pounds. He has undergone tobacco cessation and counseling. He is looking into the sleeve gastrectomy. At height of 5 feet 10 inches, her ideal body weight is 173 pounds. He comes in 324 pounds, body mass index is 46.6. He is 151 pounds overweight. PAST MEDICAL HISTORY: 1. Morbid obesity due to excess calories 2. Body mass index of 46.6, initial 3. Osteoarthritis of the knees. 4. Osteoarthritis of the shoulder 5. Hypertensive heart disease. 6. Gastroesophageal reflux disease 7. Hyperlipidemia 8. Obstructive sleep apnea 9. Anxiety disorder 10. Chronic pain syndrome 11. Depressive disorder PAST SURGICAL HISTORY: 1. Right leg surgery 2. Left rotator cuff surgery HOME MEDICATIONS: Home Medications Medication Instructions Recorded Confirmed Lisinopril [Zestril] 20 mg PO QAM 10/01/17 06/18/19 Simvastatin 40 mg PO HS 10/01/17 06/18/19 Nicotine 21Mg/24Hr Patch [Habitrol] 1 each TRANSDERM DAILY 06/18/19 06/18/19 Venlafaxine HCl [Effexor XR] 225 mg PO DAILY 06/18/19 06/18/19 Previous Rx's Medication Instructions Recorded HYDROcodone/APAP 10-325MG [[place] 1 tab PO Q4HR PRN #50 tab 10/04/17 10-325] ALLERGIES: Allergies Allergy/AdvReac Type Severity Reaction Status Date / Time Penicillins Allergy Anaphylaxis Verified 06/18/19 11:56 SOCIAL HISTORY: Past tobacco use. FAMILY HISTORY: No family history of ulcerative colitis disease or Crohn's disease. Family history of morbid obesity. No lupus in the family. No reports of stomach or esophageal cancer. REVIEW OF ORGAN SYSTEMS: CONSTITUTIONAL: At height of 5 feet 10 inches, her ideal body weight is 173 pounds. Highest weight 324 pounds. Body mass index is 46.6. He is 151 pounds overweight. HEENT: Denies any active troubles with vision or hearing. ENDOCRINE: No diabetes. No hypothyroidism. CARDIOVASCULAR: No palpitations or heart attacks or chest pain. RESPIRATORY: Has daytime somnolence. No pneumonia GASTROINTESTINAL: Denies any bright red blood per rectum. No diarrhea. No constipation. MUSCULOSKELETAL: Has lower back pain and joint pain. Has osteoarthritis of the knees. NEURO: No headaches. No seizure disorders. PSYCH: Has depression. No suicidal ideation. Has anxiety. RHEUMATOLOGIC: No lupus. No rheumatoid arthritis. HEMATOLOGIC: Denies any abnormal bleeding or bruising. No personal history of DVTs. SKIN: No rash. No skin cancer. PHYSICAL EXAM: VITAL SIGNS: Height 5 foot 10 inches, weight 324 pounds. BMI 46.6 GENERAL: Well-developed in no acute distress. HEENT: No scleral icterus. Extraocular movements grossly intact. Hears conversational speech. No nasal drainage. NECK: Supple without lymphadenopathy. CHEST: Nonlabored respirations with equal bilateral excursions. CARDIOVASCULAR: Regular rate and regular rhythm. Distal 2+ pulses. ABDOMEN: Obese, soft, nontender, nondistended. MUSCULOSKELETAL: No clubbing, cyanosis. Gross strength 5/5 distal lower extremities. NEURO: No focal or lateralizing signs. Cranial nerves 2 through 12 grossly within normal limits. PSYCH: Appropriate affect. Alert and oriented to person, place and time. SKIN: Good skin turgor. Well perfused. ASSESSMENT: 1. Morbid obesity due to excess calories 2. Body mass index of 46.6, initial 3. Osteoarthritis of the knees. 4. Osteoarthritis of the shoulder 5. Hypertensive heart disease. 6. Gastroesophageal reflux disease 7. Hyperlipidemia 8. Obstructive sleep apnea 9. Anxiety disorder 10. Chronic pain syndrome 11. Depressive disorder 12. Tobacco abuse disorder 13. H. pylori gastritis PLAN: 1. Bariatric options between a sleeve, band and a [place]-en-Y gastric bypass were reviewed in detail. The patient elected for a sleeve gastrectomy. Robotic assisted approach described. 2. The [place] [facility] Data was also reviewed with benefits and risks as described. 3. An 8 page second-generation bariatric consent form was reviewed in detail including potential of bleeding, infection, leaks, adequate weight loss, nutritional deficiencies which the patient demonstrated understanding of the risks. 4. A 2 week high-protein low caloric 800 kcal diet described to address hepatomegaly. 5. Preoperative labs including complete metabolic panel and CBC with type and screen recommended. 6. DVT prophylaxis per [place] [facility]. 7. Antibiotic prophylaxis. 8. Inpatient hospitalization anticipated for more than 2 nights. 9. All questions and concerns were addressed with the patient. Past Medical History Past Medical History: GERD/Reflux, Hyperlipidemia, Hypertension History of Any Multi-Drug Resistant Organisms: None Reported Past Surgical History: Orthopedic Surgery Additional Past Surgical History / Comment(s): R leg Fx surgery-MULTIPLE; L rotator cuff repair, EGD, Past Anesthesia/Blood Transfusion Reactions: No Reported Reaction Smoking Status: Current every day smoker - Past Family History Mother Family Medical History: No Reported History Medications and Allergies Home Medications Medication Instructions Recorded Confirmed Type Lisinopril [Zestril] 20 mg PO QAM 10/01/17 08/25/19 History Simvastatin 40 mg PO HS 10/01/17 08/25/19 History HYDROcodone/APAP 10-325MG [[place] 1 tab PO Q4HR PRN #50 tab 10/04/17 08/25/19 Rx 10-325] Venlafaxine HCl [Effexor XR] 225 mg PO DAILY 06/18/19 08/25/19 History Omeprazole 40 mg PO DAILY #90 capsule. 07/29/19 08/25/19 Rx Allergies Allergy/AdvReac Type Severity Reaction Status Date / Time Penicillins Allergy Anaphylaxis Verified 07/29/19 14:05
[~2019-08-31 06:57] MED LIST changes: +CLINDAMYCIN 900 MG in DEXTROSE 5% IN WATER 50 ML IVPB ONE; +GENTAMICIN 520 MG in SODIUM CHLORIDE 0.9% 100 ML IVPB ONE; -REGADENOSON 0.4 MG/5 ML SYRINGE IV ONE; +SCOPOLAMINE 1.5MG/72HR PATCH TRANSDERM STA
[2019-08-31] MEDS ORDERED: TAMSULOSIN 0.4 MG CAP.ER.24H PO ONE (07:00)
[2019-08-31] MEDS ORDERED: ACETAMINOPHEN IV (For NPO) 1,000 MG in EMPTY BAG 1 BAG IVPB ONE (07:00)
[2019-08-31] MEDS ORDERED: LACTATED RINGERS 1,000 ML IV ONE ×4 (07:35→12:30)
[2019-08-31] MEDS ORDERED: LIDOCAINE 1% 20 ML VIAL (10MG/ML) FOR IV START INTRADERMA ONE (07:35)
[2019-08-31 07:51] LABS: Glucose,Whole Blood 103 mg/dL (75-99)
[2019-08-31] MEDS ORDERED: ENOXAPARIN 40 MG/0.4 ML SYRINGE SQ STA (07:53)
[2019-08-31] MEDS ORDERED: PANTOPRAZOLE 40 MG/10 ML VIAL IV STA (07:53)
[2019-08-31] MEDS ORDERED: CHLORHEXIDINE GLUCONATE 15 ML CUP MUCOUS MEM ONE (07:53)
[2019-08-31] MEDS ORDERED: ONDANSETRON 4 MG/2 ML VIAL IVP ONE (08:05)
[2019-08-31] MEDS ORDERED: DEXAMETHASONE SOD PHOSPHATE 10 MG/ML 1 ML VIAL IV ONE (08:05)
[2019-08-31] MEDS ORDERED: MIDAZOLAM 2 MG/2 ML VIAL IV ONE (08:12)
[2019-08-31] MEDS ORDERED: LIDOCAINE 1% INJ 10MG/ML (20 ML MDV) ONE (08:45)
[2019-08-31] MEDS ORDERED: ROPIVACAINE 5 MG/ML 30 ML VIAL ONE (08:45)
[2019-08-31] MEDS ORDERED: PROPOFOL 10 MG/ML 20 ML VIAL IV ONE (08:45)
[2019-08-31] MEDS ORDERED: ROCURONIUM BROMIDE 10 MG/ML 5 ML VIAL IV ONE (08:45)
[2019-08-31] MEDS ORDERED: DEXAMETHASONE SOD PHOSPHATE 4 MG/ML 1 ML VIAL ONE (08:45)
[2019-08-31] MEDS ORDERED: GLYCOPYRROLATE 0.2 MG/ML 2 ML VIAL ONE (08:45)
[2019-08-31] MEDS ORDERED: fentaNYL (PF) 50 MCG/ML 2 ML AMP ONE (08:45)
[2019-08-31] MEDS ORDERED: NEOSTIGMINE 1 MG/ML 10 ML VIAL ONE (08:45)
[2019-08-31] MEDS ORDERED: KETAMINE 10 MG/ML 20 ML VIAL ONE (08:45)
[2019-08-31] MEDS ORDERED: PHENYLEPHRINE-0.9% NACL SYG 1 MG/10 ML SYRINGE ONE (08:45)
[2019-08-31] MEDS ORDERED: BUPIVACAINE-EPI 0.5%-1:200,000 10 ML VIAL SQ ONE (09:25)
[2019-08-31] MEDS: HYDROmorphone 1 MG/ML 1 ML SYRINGE IVP ONE ×4 (11:20→14:12)
[2019-08-31] MEDS ORDERED: diphenhydrAMINE 50 MG/ML 1 ML VIAL IVP PRN (11:21)
[2019-08-31] MEDS ORDERED: NALOXONE 0.4 MG/ML 1 ML VIAL IV PRN (11:21)
--- NOTE | 2019-08-31 11:21 | P.OP ---
Date of Procedure: 08/31/19 Description of Procedure: SURGEON: MARGI POLO MD PREOPERATIVE DIAGNOSES: 1. Morbid obesity due to excess calories 2. Body mass index of 46.6, initial 3. Osteoarthritis of the knees. 4. Osteoarthritis of the shoulder 5. Hypertensive heart disease. 6. Gastroesophageal reflux disease 7. Hyperlipidemia 8. Obstructive sleep apnea 9. Anxiety disorder 10. Chronic pain syndrome 11. Depressive disorder 12. Tobacco abuse disorder 13. H. pylori gastritis POSTOPERATIVE DIAGNOSES: 1. Morbid obesity due to excess calories 2. Body mass index of 46.6, initial 3. Osteoarthritis of the knees. 4. Osteoarthritis of the shoulder 5. Hypertensive heart disease. 6. Gastroesophageal reflux disease 7. Hyperlipidemia 8. Obstructive sleep apnea 9. Anxiety disorder 10. Chronic pain syndrome 11. Depressive disorder 12. Tobacco abuse disorder 13. H. pylori gastritis 14 Hepatomegaly with fatty liver disease 15. Alcohol abuse disorder OPERATION: 1. Robotic assisted daVinci Xi laparoscopic sleeve gastrectomy with 40-Tajik bougie, multiport. 2. Intraoperative esophagogastroduodenoscopy. ANESTHESIA: Gen. local anesthetic ESTIMATED BLOOD LOSS: 10 mL SPECIMENS REMOVED: Sleeve gastrectomy COMPLICATIONS: None. INDICATIONS: Gopal Tapia is a 44-year-old male who comes with lifelong morbid obesity. He has gastroesophageal reflux disease. He is a chronic pain patient. He has troubles with right knee after leg fracture and bone grafts with shoulder surgery. He still has his gallbladder. No fatty food intolerance. No stomach or esophageal cancer in himself or family. No diarrhea. All his family has obesity. His highest weight is 324 pounds. He has undergone tobacco cessation and counseling. He is looking into the sleeve gastrectomy. At height of 5 feet 10 inches, her ideal body weight is 173 pounds. He comes in 324 pounds, body mass index is 46.6. He is 151 pounds overweight. A second-generation bariatric consent form was described in detail including the possibility of protein malnutrition, leaks, gastric stricture, venous thrombosis, gastroesophageal reflux disease, need for further surgery for which he demonstrated understanding. Benefits and risks of the procedure were described at length. Informed consent was obtained. DESCRIPTION: The patient was brought into the operating room theater. Preoperatively he had received Lovenox subcutaneously for DVT prophylaxis. Additionally he had Peridex oral solution as an oral decontaminant. After general induction, the abdomen was prepped and draped in standard sterile fashion. An Ioban draping was placed along the abdomen. Tse catheter was placed. A robotic da Armando Xi system was prepped and primed. At 15 cm from the xiphoid, proposed port sites were marked with indelible marker along the anterior axillary line bilaterally, mid axillary line bilaterally with each ports were marked 10 to 15 cm from each other. The patient support assistant port was marked along the left lateral abdominal wall. The robotic stapler port was marked for the right midclavicular line. A 5 mm 0 degrees laparoscopic trocar entry was performed along the left upper quadrant. The abdomen was insufflated to 15 mmHg pressure he tolerated well. Diagnostic laparoscopy demonstrated no injury to bowel, viscera, or mesentery. The liver surface was unremarkable without evidence of hepatomegaly or fatty liver disease. No injury had occurred to the small bowel or viscera. Along the hiatus no recurrent hiatal hernia was found. A 8 mm port was placed along the right upper abdominal wall after exchanging the 5 mm port. A separate 8 mm port was placed along the left lateral abdominal wall. Please note that the ports were placed at least 20 cm away from the target anatomy. Care was taken to check each robotic arms were safely away from collision with the bed or the patient. At the epigastrium, a medium sized Lyn liver retractor was placed under direct visualization with the Iron Crane Assembler placed under the right shoulder of the patient. Next, 12-mm robot stapler port was placed along the right upper quadrant. The camera 8-mm port was maintained along the epigastrium. The patient was repositioned in reverse Trendelenburg position at 16-degrees after lowering the bed. The robot was docked along the left side of the patient. Using a grasper for arm 4, a veseel sealer for arm 3, including grasper for arm 1, the robotic system was docked and primed as described. Instruments were interchanged by the patient support assistant for stapler loads. The camera was placed at 30-degrees down. I had sat at the console. The pylorus was identified and 6 cm proximally along the greater curvature of the stomach, the short gastrics were mobilized upwards to the angle of His using a vessel sealer. Hemostasis was excellent during this portion of the procedure. Next, the upper pole of the stomach was adherent to the left dandre, which was gently dissected free using atraumatic grasper. The nursing exhibitions and collections manager placed a 40-Tajik blunted tip bougie into the stomach. Robotic stapler green 60 mm x 6 were used to create the sleeve. Initial firing was across the antrum of the stomach towards the angle of His. The staple line was completely hemostatic and linear without corkscrewing. Hemostasis was excellent. The space from the angularis incisura of the sleeve was approximately 4 cm. I then went to the head of the bed to perform the intraoperative esophagogastroduodenoscopy leak test. The upper pole of the stomach was bathed using normal saline solution. The scope was withdrawn with careful inspection along the staple line for which no leaks were found along the entire length. Additionally, the sleeve was completely hemostatic without any encroachment along the angularis incisura. Its topology was a soft "J". No stricture was encountered upon placement of the scope. The GI tract was desufflated. The patient tolerated this portion of the procedure well. The scope was completely withdrawn. The robot was undocked. I then rescrubbed into case, whereby the irrigation fluid was aspirated from the abdominal cavity. Tisseel fibrin sealant was placed along the entire staple length. Once dried the Lyn liver retractor was removed. Attention was now brought to removal of the specimen. The distal end of the sleeve gastrectomy specimen was brought out through the 12 mm port at the left upper quadrant. The specimen was gently removed en total, corresponding to 29 cm x 6 cm sleeve gastrectomy specimen. No contamination had occurred during this process. All instruments and pneumoperitoneum including irrigation fluid was removed from the abdominal cavity. The 12 mm port site was irrigated with warm normal saline solution and diluted hydron peroxide. The 12-mm port site was reapproximated using 0 Vicryl and Triston-Fransico of the left upper quadrant. The final incisions were closed using subcuticular interrupted suture of 4-0 Monocryl. Dermabond was applied to the skin once the skin had been cleansed. OptiFoam dressing was placed along the stomach extraction site. At the end of the procedure, needle, sponge, and instrument count was verified correct by the neurosurgical nurse practitioner. The patient was taken to the postanesthesia care unit in stable condition. He had tolerated the procedure well. Intraoperative films and findings were reviewed with the patient's family. FINDINGS: 1. Negative intraoperative esophagogastrojejunoscopy leak test. 2. No large hiatus hernia. 3. Total of 6 staplers used including 6 - 60 mm green obot luis armando used to create the gastric sleeve. 4. Sleeve gastrectomy 29 x 6 cm 5. Moderate intra-abdominal fat. 6. Discussion with anesthesia confirms patient drinks over 12 beers daily
[2019-08-31] MEDS ORDERED: HYDROmorphone 1 MG/ML 1 ML SYRINGE IVP ONE ×2 (11:37→12:15)
[2019-08-31] MEDS: ALBUTEROL NEBULIZED 2.5 MG/3 ML INHALATION SCH ×3 (12:59→19:51)
[2019-08-31] MEDS: ACETAMINOPHEN IV (For NPO) 1,000 MG in EMPTY BAG 1 BAG IVPB SCH ×6 (13:10→18:51)
[2019-08-31] MEDS ORDERED: LABETALOL SYRINGE 5 MG/ML IVP ONE ×2 (13:30→14:04)
--- NOTE | 2019-08-31 13:38 | P.ANPRN ---
Procedure Note - Anesthesia - Nerve Block Performed Bilateral Transversus Abdominis Single Time Out Performed: Yes Date of Procedure: 08/31/19 Procedure Start Time: 12:54 Procedure Stop Time: 13:04 Location of Patient: Phase I Indication: Acute Post-Operative Pain, Requested by Surgeon Sedation Type: Sedate with meaningful contact maintained Preparation: Sterile Prep Position: Supine Catheter: None Needle Types: Pajunk Needle Gauge: 21 Ultrasound used to visualize needle placement: Yes Ultrasound used to observe medication spread: Yes Injectate: 0.5% Ropivacaine (see comment for volume) (ropivacaine 0.5% - 20 cc + decadron 5mg---- side) Blood Aspirated: No Pain Paresthesia on Injection Noted: No Resistance on Injection: Normal Image Stored and Saved: Yes Events: Uneventful and Well Tolerated
[2019-08-31 14:00] VITALS: RESP 18
[2019-08-31] MEDS: SIMETHICONE 40 MG/0.6 ML DROPS 2,000 MG/30 ML BOTTLE PO SCH ×2 (14:53→19:36)
[2019-08-31] MEDS: HYOSCYAMINE ORAL DROPS 1.875 MG/15 ML BOTTLE PO SCH ×2 (14:54→19:37)
--- NOTE | 2019-08-31 15:40 | FL ---
EXAMINATION TYPE: FL UGI DATE OF EXAM: 08/31/2019 CLINICAL HISTORY: Status post gastric sleeve. TECHNIQUE: Limited esophagram is performed utilizing 50 mL of Isovue 370. A total of 29 seconds of f luoroscopic time was utilized during procedure. 13 fluoroscopic images were saved. COMPARISON: None. FINDINGS: The patient swallowed contrast without difficulty or delay. Esophageal peristalsis and mo tility are within normal limits. There is good flow of contrast along the diaphragmatic hiatus into proximal stomach and subsequent flow into gastric sleeve. There is good flow from distal sleeve into pylorus and proximal duodenal. Patient remains asymptomatic. There is no evidence of contrast extrava sation to suggest leak. IMPRESSION: No evidence of leak or significant obstruction status post recent gastric sleeve surgery.
[2019-08-31] MEDS: ONDANSETRON 4 MG/2 ML VIAL IVP SCH ×2 (15:48→19:37)
[2019-08-31] MEDS: CLINDAMYCIN 900 MG in DEXTROSE 5% IN WATER 50 ML IVPB SCH ×2 (17:55)
[2019-08-31] MEDS: 0.9% NACL WITH KCL 20 MEQ/L 1,000 ML IV SCH ×2 (17:58→19:37)
[2019-08-31] MEDS: HYDROcodone/APAP 10-325MG 1 EACH TAB PO PRN (20:15)
[2019-08-31] MEDS: LORazepam 2 MG/ML INJ IV PRN (20:16)
--- NOTE | 2019-08-31 22:37 | P.CONS ---
History of Present Illness - Reason for Consult Consult date: 08/31/19 Medical management Requesting physician: Lea Garcia - Chief Complaint Sleep gastrectomy - History of Present Illness Consultation: This is a pleasant 44-year-old patient of Dr. stack. Chronic stable medical conditions include GERD, hypertension, hyperlipidemia, anxiety and morbid obesity. BMI is 45.4 patient status post gastrectomy. Postprocedure laying in bed. Did tolerate some ice chips. Had some slight nausea. Pain is controlled. No fever no chills. Breathing is stable. No chest pain. Review of systems: GEN.: Tired EYES: None HEENT: None NECK: None RESPIRATORY: Occasional shortness of breath CARDIOVASCULAR: None GASTROINTESTINAL: Some nausea GENITOURINARY: None MUSCULOSKELETAL: None LYMPHATICS: None HEMATOLOGICAL: None PSYCHIATRY: Anxiety NEUROLOGICAL: None Past medical history to include: GERD, hyperlipidemia, hypertension, anxiety Social history: Patient is unemployed. Smokes anywhere from half to 1 pack a day. Lives with his brother and father. Patient stopped smoking 15 years ago started up again in 3 months ago. Alcohol occasionally. Family history: Reviewed, noncontributory to presentation Physical examination: VITAL SIGNS: 97.8, 64, 16, 166/90, 96% room air GENERAL: BMI 45.4, laying in bed tired. EYES: Pupils equal. Conjunctiva normal. HEENT: External appearance of nose and ears normal, oral cavity grossly normal. NECK: JVD not raised; masses not palpable. HEART: First and second heart sounds are normal; no edema. LUNGS: Respiratory rate increased, decreased breaths on. ABDOMEN: Soft, nontender, liver spleen not palpable, no masses palpable. PSYCH: Alert and oriented x3; mood and affect tiredl. NEUROLOGICAL: Cranial nerves grossly intact; no facial asymmetry, power and sensation grossly intact. LYMPHATICS: No lymph nodes palpable in the axilla and neck INVESTIGATIONS, reviewed in the clinical context: Labs from August 26 White count 7.7 hemoglobin 15.7 platelets 214 potassium 5. 4 repeat 4.3 creatinine 0.76 Assessment: -Status post gastrectomy -Morbid obesity BMI 45.4 -GERD -Essential hypertension -Hyperlipidemia -Anxiety not otherwise specified -Chronic nicotine dependence patient cigarette smoker Plan: Oral home medications are to be resumed. When okay with Dr. Saleh. We will put the patient on bronchodilators while in the hospital. Patient was again smoking. We'll give nicotine patch. Thank you Dr. Saleh Past Medical History Past Medical History: GERD/Reflux, Hyperlipidemia, Hypertension History of Any Multi-Drug Resistant Organisms: None Reported Past Surgical History: Orthopedic Surgery Additional Past Surgical History / Comment(s): R leg Fx surgery-MULTIPLE; L rotator cuff repair, EGD, Past Anesthesia/Blood Transfusion Reactions: No Reported Reaction Past Psychological History: Anxiety Smoking Status: Current every day smoker Past Alcohol Use History: Occasional Additional Past Alcohol Use History / Comment(s): quit smoking for 15 years; started up again 3 months ago; tring to quit; smokes 1/2-1 ppd Past Drug Use History: None Reported - Past Family History Mother Family Medical History: No Reported History, Unable to Obtain Father Family Medical History: Unable to Obtain Medications and Allergies Home Medications Medication Instructions Recorded Confirmed Type Lisinopril [Zestril] 20 mg PO QAM 10/01/17 08/31/19 History Simvastatin 40 mg PO HS 10/01/17 08/31/19 History HYDROcodone/APAP 10-325MG [[place] 1 tab PO Q4HR PRN #50 tab 10/04/17 08/31/19 Rx 10-325] Venlafaxine HCl [Effexor XR] 225 mg PO DAILY 06/18/19 08/31/19 History Omeprazole 40 mg PO DAILY #90 capsule. 07/29/19 08/31/19 Rx ALPRAZolam [Xanax] 0.5 mg PO Q8H PRN 08/31/19 08/31/19 History Allergies Allergy/AdvReac Type Severity Reaction Status Date / Time codeine Allergy Itching Verified 08/31/19 07:41 Penicillins Allergy Anaphylaxis Verified 08/31/19 07:15 Physical Exam Vitals: Vital Signs Temp Pulse Pulse Resp BP Pulse Ox 08/31/19 21:39 98.0 F 114 H 18 173/91 92 L 08/31/19 20:13 114 H 08/31/19 19:51 111 H 08/31/19 17:00 148/86 08/31/19 16:21 100 08/31/19 16:13 97 08/31/19 15:33 90 L 08/31/19 15:00 98.6 F 96 18 167/106 90 L 08/31/19 14:30 95 18 170/89 95 08/31/19 13:55 93 18 172/94 97 08/31/19 13:40 92 18 181/94 97 08/31/19 13:25 105 H 20 188/96 96 08/31/19 13:10 103 H 20 177/96 96 08/31/19 12:54 100 20 176/96 96 08/31/19 12:30 103 H 25 H 185/95 94 L 08/31/19 12:10 100 20 185/95 94 L 08/31/19 11:55 98 20 174/85 99 08/31/19 11:40 98 20 181/83 95 08/31/19 11:25 92 20 206/95 95 08/31/19 11:10 89 18 142/67 93 L 08/31/19 07:11 97.8 F 74 16 166/93 96 Intake and Output 08/31/19 08/31/19 08/31/19 06:59 14:59 22:59 Intake Total 2719 Output Total 710 400 Balance 2008 Intake: IV 2719 Output: Urine 700 400 Estimated Blood Loss 10 Other: Weight 152 kg 152 kg Results CBC & Chem 7: 08/31/19 07:30 Labs: Abnormal Lab Results - Last 24 Hours (Table) 08/31/19 Range/Units 07:30 POC Glucose (mg/dL) 103 H (75-99) mg/dL
[2019-08-31] MEDS: HYDROmorphone 1 MG/ML 1 ML SYRINGE IVP PRN (23:23)
[2019-09-01] MEDS: ACETAMINOPHEN IV (For NPO) 1,000 MG in EMPTY BAG 1 BAG IVPB SCH ×2 (00:49→06:06)
[2019-09-01] MEDS: HYOSCYAMINE ORAL DROPS 1.875 MG/15 ML BOTTLE PO SCH ×3 (00:49→11:24)
[2019-09-01] MEDS: SIMETHICONE 40 MG/0.6 ML DROPS 2,000 MG/30 ML BOTTLE PO SCH ×3 (00:49→11:24)
[2019-09-01] MEDS: ONDANSETRON 4 MG/2 ML VIAL IVP SCH ×3 (00:49→11:15)
[2019-09-01] MEDS: 0.9% NACL WITH KCL 20 MEQ/L 1,000 ML IV SCH ×2 (02:02→11:37)
[2019-09-01] MEDS: CLINDAMYCIN 900 MG in DEXTROSE 5% IN WATER 50 ML IVPB SCH ×2 (02:17)
[2019-09-01] MEDS ORDERED: ENOXAPARIN 40 MG/0.4 ML SYRINGE SQ SCH (06:00)
[2019-09-01] MEDS: HYDROmorphone 1 MG/ML 1 ML SYRINGE IVP PRN (06:56)
[2019-09-01] MEDS: LORazepam 2 MG/ML INJ IV PRN ×2 (06:57→11:17)
[2019-09-01 07:42] VITALS: BP 137/76; TEMP 97.8
[2019-09-01] MEDS: IPRATROPIUM-ALBUTEROL 3 ML NEB INHALATION SCH ×3 (07:43→15:22)
[2019-09-01 07:47] VITALS: PULSE 116
[2019-09-01 07:57] LABS: African American GFR (CKD) >90 (>60 ml/min/1.73 sqM); Anion Gap 10 mmol/L; Blood Urea Nitrogen 9 mg/dL (9-20); Calcium 9.1 mg/dL (8.4-10.2); Carbon Dioxide 27 mmol/L (22-30); Chloride 101 mmol/L (98-107); Magnesium 1.5 mg/dL (1.6-2.3); Non-African American GFR(CKD) >90 (>60 ml/min/1.73 sqM); Phosphorus 3.3 mg/dL (2.5-4.5); Potassium 4.3 mmol/L (3.5-5.1); Sodium 138 mmol/L (137-145)
[2019-09-01] MEDS ORDERED: 1: MVI, ADULT NO.4 WITH VIT K 10 ML, THIAMINE 100 MG, FOLIC ACID 1 MG, POTASSIUM CHLORID IV SCH ×6 (08:00)
[2019-09-01 08:01] LABS: Basophils % (A) 0 %; Eosinophils % (A) 0 %; HCT 41.8 % (39.0-53.0); HGB 14.1 gm/dL (13.0-17.5); Lymphocytes % (A) 6 %; MCH 30.5 pg (25.0-35.0); MCHC 33.6 g/dL (31.0-37.0); MCV 90.9 fL (80.0-100.0); Mean Platelet Volume 7.7; Monocytes # (A) 0.9 k/uL (0-1.0); Monocytes % (A) 5 %; Neutrophils # (A) 14.2 k/uL (1.3-7.7); Neutrophils % (A) 86 %; Platelet Count 224 k/uL (150-450); RDW 12.8 % (11.5-15.5); WBC 16.4 k/uL (3.8-10.6)
[2019-09-01] MEDS ORDERED: LISINOPRIL 20 MG TAB PO SCH (09:00)
[2019-09-01] MEDS ORDERED: PANTOPRAZOLE 40 MG/10 ML VIAL IV SCH (09:00)
[2019-09-01] MEDS ORDERED: NICOTINE 21MG/24HR PATCH TRANSDERM SCH (09:00)
[2019-09-01] MEDS ORDERED: SODIUM CHLORIDE 0.9% 2,000 ML IV ONE (09:38)
[2019-09-01] MEDS: MAGNESIUM SULFATE-D5W PMX 1 GM in DEXTROSE/WATER 1 100ML.BAG IVPB SCH ×4 (11:12→15:26)
--- NOTE | 2019-09-01 11:14 | P.DS ---
<Marah Mitchell - Last Filed: 09/01/19 11:11> Providers Expected date of discharge: 09/01/19 Hospital Course: 44-year-old male who underwent robotic-assisted laparoscopic sleeve gastrectomy with Dr. Garcia. Postoperative esophagram negative for leak or obstruction. Patient is tolerating liquid diet without nausea or vomiting. Vital signs are stable. Pain is controlled on oral medications. He is stable for discharge home today. Please see EMR for further hospital course details. Discharge diagnosis 1. Morbid obesity due to excess calories 2. Body mass index of 46.6, initial 3. Osteoarthritis of the knees. 4. Osteoarthritis of the shoulder 5. Hypertensive heart disease. 6. Gastroesophageal reflux disease 7. Hyperlipidemia 8. Obstructive sleep apnea 9. Anxiety disorder 10. Chronic pain syndrome 11. Depressive disorder 12. Tobacco abuse disorder 13. H. pylori gastritis 14 Hepatomegaly with fatty liver disease 15. Alcohol abuse disorder Nurse practitioner note has been reviewed by physician. Signing provider agrees with the documented findings, assessment, and plan of care. Plan - Discharge Summary Discharge Rx Participant: Yes New Discharge Prescriptions: New Bisacodyl [Dulcolax] 5 mg PO DAILY PRN #10 tablet. PRN Reason: Constipation Simethicone 40 mg/0.6 ml Drops [Mylicon Drops] 40 mg PO PCHS PRN #30 ml PRN Reason: gas Ondansetron Odt [Zofran Odt] 4 mg PO Q8HR PRN #9 tab PRN Reason: Nausea Continue Simvastatin 40 mg PO HS Lisinopril [Zestril] 20 mg PO QAM HYDROcodone/APAP 10-325MG [[place] 10-325] 1 tab PO Q4HR PRN #50 tab PRN Reason: Pain Venlafaxine HCl [Effexor XR] 225 mg PO DAILY Omeprazole 40 mg PO DAILY #90 capsule. ALPRAZolam [Xanax] 0.5 mg PO Q8H PRN PRN Reason: Anxiety Discharge Medication List Lisinopril [Zestril] 20 mg PO QAM 10/01/17 [History] Simvastatin 40 mg PO HS 10/01/17 [History] HYDROcodone/APAP 10-325MG [[place] 10-325] 1 tab PO Q4HR PRN #50 tab 10/04/17 [Rx] Venlafaxine HCl [Effexor XR] 225 mg PO DAILY 06/18/19 [History] Omeprazole 40 mg PO DAILY #90 capsule. 07/29/19 [Rx] ALPRAZolam [Xanax] 0.5 mg PO Q8H PRN 08/31/19 [History] Bisacodyl [Dulcolax] 5 mg PO DAILY PRN #10 tablet. 09/01/19 [Rx] Ondansetron Odt [Zofran Odt] 4 mg PO Q8HR PRN #9 tab 09/01/19 [Rx] Simethicone 40 mg/0.6 ml Drops [Mylicon Drops] 40 mg PO PCHS PRN #30 ml 09/01/19 [Rx] Follow up Appointment(s)/Referral(s): Antwan Manjarrez MD [Primary Care Provider] - 09/03/19 11:00 am Bariatric [place], [place] [NON-STAFF] - 09/04/19 10:00 am Activity/Diet/Wound Care/Special Instructions: No driving while taking [place] No lifting over 4 pounds You may shower. No soaking or tub baths Very light activity until you are reevaluated at your follow up appointment with your surgeon Continue clear liquid diet per bariatric center schedule No straws or carbonated beverages Avoid beverages with greater than 6 g of sugar to avoid dumping syndrome Crush or open all medications greater than the size of a tic tac Discharge Disposition: HOME SELF-CARE <Lea Garcia - Last Filed: 09/01/19 18:47> Providers Date of admission: 08/31/19 06:57 Attending physician: Lea Garcia Consults: 08/31/19 14:48 Consult Physician Routine Consulting Provider: Alejandro Ramon Consult Reason/Comments: Medical management, alcohol abuse hx Do you want consulting provider notified?: Yes Primary care physician: Antwan Manjarrez
[2019-09-01] MEDS: HYDROcodone/APAP 10-325MG 1 EACH TAB PO PRN ×2 (11:17→16:25)
[2019-09-01 11:30] VITALS: BMI 45.4
--- NOTE | 2019-09-01 22:28 | P.PN ---
Progress Note - Text Progress Note Date: 09/01/19 - Chief Complaint Sleep gastrectomy Consultation: This is a pleasant 44-year-old patient of Dr. stack. Chronic stable medical conditions include GERD, hypertension, hyperlipidemia, anxiety and morbid obesity. BMI is 45.4 patient status post gastrectomy. Today-feeling better. Tolerated liquid diet. Laying in bed. Pain control. Has been out of bed. Patient very anxious to go home. Review of systems: Was done for constitutional, cardiovascular, GI, pulmonary. relevant finding as above His current medications are reviewed in today's electronic records Physical examination: VITAL SIGNS: 97.8, 119, 18, 137 was 76, 93% on room air GENERAL: Laying in bed, awake EYES: Pupils equal. Conjunctiva normal. HEENT: External appearance of nose and ears normal, oral cavity grossly normal. NECK: JVD not raised; masses not palpable. HEART: First and second heart sounds are normal; no edema. LUNGS: Respiratory rate increased, decreased breaths on. ABDOMEN: Soft, nontender, liver spleen not palpable, no masses palpable. PSYCH: Alert and oriented x3; mood and affect tiredl. INVESTIGATIONS, reviewed in the clinical context: Labs from August 26 White count 7.7 hemoglobin 15.7 platelets 214 potassium 5. 4 repeat 4.3 c reatinine 0.76 Assessment: -Status post gastrectomy -Morbid obesity BMI 45.4 -GERD -Essential hypertension -Hyperlipidemia -Anxiety not otherwise specified -Chronic nicotine dependence patient cigarette smoker Plan: Continue current medication treatment plan. Care discussed with the patient. Thank you Dr. Saleh
[2019-09-02] MEDS ORDERED: BISACODYL 5 MG TABLET.DR PO PRN (08:00)
--- NOTE | 2019-09-03 14:24 | CDI ---
Documentation Clarification Form Date: 09/03/19 From: Edwina Briggs Phone: If you have a question about this query, please contact Ashli Peña, [employer] at [phone] between 8am and 5pm. Admit Date: 08/31/19 Discharge Date:09/01/19 Patient Name: Gopal Tapia Visit Number: [id number] ATTENTION: The Clinical Documentation Specialists (CDI) and [facility] Coding Staff appreciate your assistance in clarifying documentation. Please respond to the clarification below the line at the bottom and electronically sign. The CDI & [facility] Coding staff will review the response and follow-up if needed. Please note: Queries are made part of the Legal Health Record. If you have any questions, please contact the author of this message via ITS. Dear Dr. Garcia Conflicting documentation has been found in the medical record: Hepatomegaly with fatty liver disease is documented in the H&P, discharge summary and the postoperative diagnoses of the procedure note. However, in the description of the procedure note you documented that the liver surface was unremarkable without evidence of hepatomegaly or fatty liver. History/Risk Factors: Morbid obesity. Clinical Indicators: No symptoms documented Treatment: High protein low calorie diet prior to admission. In your opinion, what is the most clinically appropriate diagnosis for this patient? Fatty Liver disease Ruled In Ruled Out Hepatomegaly Ruled In Ruled Out Other explanation of clinical findings Unable to determine (no explanation for clinical findings) Please see corrected operative note...fatty liver disease present with hepatomegaly. KM 09/03/19 20:37 MTDD
--- NOTE | 2019-09-04 06:58 | CDI ---
Documentation Clarification Form Date: 09/04/19 From: Edwina Briggs Phone: If you have a question about this query, please contact Ashli Peña, Therapeutic Consultant at [phone] between 8am and 5pm. Admit Date: 08/31/19 Discharge Date:09/01/19 Patient Name: Gopal Tapia Visit Number: [id number] ATTENTION: The Clinical Documentation Specialists (CDI) and [facility] Coding Staff appreciate your assistance in clarifying documentation. Please respond to the clarification below the line at the bottom and electronically sign. The CDI & [facility] Coding staff will review the response and follow-up if needed. Please note: Queries are made part of the Legal Health Record. If you have any questions, please contact the author of this message via ITS. Dear Dr. Garcia Documentation states: Lab results show a magnesium of 1.5 History/Risk Factors: Morbid obesity, gastritis Clinical indicators: Slight nausea Abnormal lab: Magnesium 1.5 Treatment: 4 bags of IV magnesium sulfate/dextrose 1 gm IV Clinical significance of diagnostic testing and treatment CANNOT be assumed or coded without physician documentation of significance if any. Please clarify what abnormal laboratory signifies: Disease process, please specify Infectious process, please specify Abnormal Lab Value Unable to determine Other, please specify Abnormal Lab Value 09/04/19 15:32 MTDD
== END 2019-09-01 16:30 | disposition home or self-care (01) | DRG 621 ==
LOC: 2ORMAIN 06:57 → 4SSUR 11:23
PROVIDERS: ADMIT Surgery Plastic and Reconstructive Surgery; ATTEND Surgery Plastic and Reconstructive Surgery
PROC: 0DB64Z3 Excision of Stomach, Percutaneous Endoscopic Approach, Vertical (ICD-10-PCS; principal; 2019-08-31 08:30)
PROC: 0DJ08ZZ Inspection of Upper Intestinal Tract, Via Natural or Artificial Opening Endoscopic (ICD-10-PCS; principal; 2019-08-31 08:30)
PROC: 8E0W4CZ Robotic Assisted Procedure of Trunk Region, Percutaneous Endoscopic Approach (ICD-10-PCS; principal; 2019-08-31 08:30)
DX: E66.01 Morbid (severe) obesity due to excess calories (principal); Z68.42 Body mass index [BMI] 45.0-49.9, adult; R16.0 Hepatomegaly, not elsewhere classified; I11.9 Hypertensive heart disease without heart failure; K76.0 Fatty (change of) liver, not elsewhere classified; B96.81 Helicobacter pylori [H. pylori] as the cause of diseases classified elsewhere; E78.5 Hyperlipidemia, unspecified; F10.10 Alcohol abuse, uncomplicated; F17.210 Nicotine dependence, cigarettes, uncomplicated; F32.9 Major depressive disorder, single episode, unspecified; F41.9 Anxiety disorder, unspecified; G47.33 Obstructive sleep apnea (adult) (pediatric); G89.4 Chronic pain syndrome; K21.9 Gastro-esophageal reflux disease without esophagitis; K29.70 Gastritis, unspecified, without bleeding; M17.0 Bilateral primary osteoarthritis of knee; M19.019 Primary osteoarthritis, unspecified shoulder; Z79.899 Other long term (current) drug therapy; Z88.0 Allergy status to penicillin
CPT/HCPCS: 64488; 74240; 80051; 82310; 82565; 83735; 84100; 84132; 84520; 85025; 86850; 86900; 86901; 88307; 88342; 94640; 94660; 94760; 94762

== ENCOUNTER → 2019-09-04 | Outpatient (CLI) | payer MEDICARE, OTHER ==
[2019-09-04 10:34] VITALS: BP 152/105; PULSE 105; RESP 16; TEMP 98.4; BMI 45.8
--- NOTE | 2019-09-04 15:40 | P.PN ---
Subjective Progress Note Date: 09/04/19 DATE OF SERVICE: 09/04/2019 CHIEF COMPLAINT: Morbid obesity HISTORY OF PRESENT ILLNESS: Gopal Tapia is a 44-year-old male status post sleeve gastrectomy, 08/31/19. He is POD 4. He denies any new complaints. He denies any gastroesophageal reflux disease. He denies abdominal pain. He is ambulating. He is tolerating liquids. He is passing flatus. He had a bowel movement. At height of 5 feet 10 inches, his ideal body weight is 173 pounds. Highest weight of 324 pounds. He comes in 318 pounds from 320 pounds, 1 month ago. He has lost 2 pounds in 1 month. His body mass index is 46.6 down to 45.8. Lifetime weight loss of 6 pounds. Lifetime percent excess weight loss of 4%. He is 145 pounds overweight. PHYSICAL EXAM: VITAL SIGNS: Height 5 foot 10 inches, weight 318 pounds. BMI 45.8 Vital Signs Temp 98.4 F 09/04/19 10:31 Pulse 105 H 09/04/19 10:31 Resp 16 09/04/19 10:31 BP 152/105 09/04/19 10:31 Pulse Ox GENERAL: Well-developed in no acute distress. HEENT: No scleral icterus. Extraocular movements grossly intact. Hears conversational speech. No nasal drainage. NECK: Supple without lymphadenopathy. CHEST: Nonlabored respirations with equal bilateral excursions. CARDIOVASCULAR: Distal 2+ pulses. ABDOMEN: No signs of infection. Dressing discontinued. Binder placed. Incisions are clean, dry and intact. MUSCULOSKELETAL: No clubbing, cyanosis. NEURO: No focal or lateralizing signs. Cranial nerves 2 through 12 grossly within normal limits. PSYCH: Appropriate affect. Alert and oriented to person, place and time. SKIN: Good skin turgor. Well perfused. ASSESSMENT: 1. Morbid obesity due to excess calories 2. Body mass index of 46.6, initial 3. Osteoarthritis of the knees. 4. Osteoarthritis of the shoulder 5. Hypertensive heart disease. 6. Gastroesophageal reflux disease 7. Hyperlipidemia 8. Obstructive sleep apnea 9. Anxiety disorder 10. Chronic pain syndrome 11. Depressive disorder 12. H. pylori infection 13. Status post gastric bypass PLAN: 1. Follow-up in one week. 2. Overall, he is doing well. Objective - Vital Signs Vital signs: Vital Signs Temp 98.4 F 09/04/19 10:31 Pulse 105 H 09/04/19 10:31 Resp 16 09/04/19 10:31 BP 152/105 09/04/19 10:31 Pulse Ox Intake & Output 09/03/19 09/04/19 09/04/19 18:59 06:59 18:59 Weight 144.696 kg
== END | disposition home or self-care (01) ==
LOC: BARWHC3 09:54
PROVIDERS: ATTEND Surgery Plastic and Reconstructive Surgery
DX: Z48.815 Encounter for surgical aftercare following surgery on the digestive system (principal); E66.01 Morbid (severe) obesity due to excess calories; M19.019 Primary osteoarthritis, unspecified shoulder; M17.0 Bilateral primary osteoarthritis of knee; I11.9 Hypertensive heart disease without heart failure; K21.9 Gastro-esophageal reflux disease without esophagitis; E78.5 Hyperlipidemia, unspecified; G47.33 Obstructive sleep apnea (adult) (pediatric); F41.8 Other specified anxiety disorders; G89.4 Chronic pain syndrome; A04.8 Other specified bacterial intestinal infections; Z68.42 Body mass index [BMI] 45.0-49.9, adult; Z98.84 Bariatric surgery status
CPT/HCPCS: 99211

== ENCOUNTER → 2019-09-09 | Outpatient (CLI) | payer MEDICARE, OTHER ==
[2019-09-09 13:08] VITALS: BP 155/94; PULSE 78; RESP 16; TEMP 98.2; BMI 46.2
--- NOTE | 2019-09-09 13:28 | P.PN ---
Subjective Progress Note Date: 09/09/19 DATE OF SERVICE: 09/09/2019 CHIEF COMPLAINT: Status post sleeve gastrectomy HISTORY OF PRESENT ILLNESS: Gopal Tapia is a 44-year-old male status post sleeve gastrectomy, 08/31/19. He is 1 week out. He is comes in with low protein intake. He comes in with increased weight. He denies heartburn. He has cravings for smoking. He eats less than 50 grams of protein daily. He is a pickey eater. At height of 5 feet 10 inches, his ideal body weight is 173 pounds. Highest weight of 324 pounds. He comes in 321 pounds from 318 pounds, 1 week ago. He has gained 3 pounds in 1 week. His body mass index is 46.6 down to 46.2. Lifetime weight loss of 3 pounds. Lifetime percent excess weight loss of 2%. He is 148 pounds overweight. PHYSICAL EXAM: VITAL SIGNS: Height 5 foot 10 inches, weight 321 pounds. BMI 46.2 Vital Signs Temp 98.2 F 09/09/19 13:06 Pulse 78 09/09/19 13:06 Resp 16 09/09/19 13:06 BP 155/94 09/09/19 13:06 Pulse Ox GENERAL: Well-developed in no acute distress. HEENT: No scleral icterus. Extraocular movements grossly intact. Hears conversational speech. No nasal drainage. NECK: Supple without lymphadenopathy. CHEST: Nonlabored respirations with equal bilateral excursions. CARDIOVASCULAR: Distal 2+ pulses. ABDOMEN: No signs of infection. Incisions are clean, dry and intact. MUSCULOSKELETAL: No clubbing, cyanosis. NEURO: No focal or lateralizing signs. Cranial nerves 2 through 12 grossly within normal limits. PSYCH: Appropriate affect. Alert and oriented to person, place and time. SKIN: Good skin turgor. Well perfused. MISCELLANEOUS: Images of sleeve reviewed. PATHOLOGY: Final Pathologic Diagnosis STOMACH, SLEEVE GASTRECTOMY: Benign gastric mucosa with moderate chronic gastritis. See note. Notes Given the history of a previous gastric biopsy positive for Helicobacter pylori organisms, H. pylori immunostain was repeated on the current specimen and examined with appropriate positive control. The gastrectomy specimen is immunohistochemically negative for H. pylori organisms. ASSESSMENT: 1. Morbid obesity due to excess calories 2. Body mass index of 46.6, initial to 46.2 3. Osteoarthritis of the knees. 4. Osteoarthritis of the shoulder 5. Hypertensive heart disease. 6. Gastroesophageal reflux disease 7. Hyperlipidemia 8. Obstructive sleep apnea 9. Anxiety disorder 10. Chronic pain syndrome 11. Depressive disorder 12. H. pylori infection 13. Status post gastric bypass 14. Tobacco abuse PLAN: 1. Recommend increase protein to 75 to 90 grams daily. Objective - Vital Signs Vital signs: Vital Signs Temp 98.2 F 09/09/19 13:06 Pulse 78 09/09/19 13:06 Resp 16 09/09/19 13:06 BP 155/94 09/09/19 13:06 Pulse Ox Intake & Output 09/08/19 09/09/19 09/09/19 18:59 06:59 18:59 Weight 146.057 kg
== END | disposition home or self-care (01) ==
LOC: BARWHC3 12:42
PROVIDERS: ATTEND Surgery Plastic and Reconstructive Surgery
DX: E66.01 Morbid (severe) obesity due to excess calories (principal); Z98.84 Bariatric surgery status; Z68.42 Body mass index [BMI] 45.0-49.9, adult; M17.0 Bilateral primary osteoarthritis of knee; M19.019 Primary osteoarthritis, unspecified shoulder; I11.9 Hypertensive heart disease without heart failure; K21.9 Gastro-esophageal reflux disease without esophagitis; E78.5 Hyperlipidemia, unspecified; G47.33 Obstructive sleep apnea (adult) (pediatric); F41.9 Anxiety disorder, unspecified; G89.4 Chronic pain syndrome; F32.9 Major depressive disorder, single episode, unspecified; B96.81 Helicobacter pylori [H. pylori] as the cause of diseases classified elsewhere; K29.50 Unspecified chronic gastritis without bleeding; Z72.0 Tobacco use
CPT/HCPCS: 97803; G0463; 99211

== ENCOUNTER → 2019-10-07 | Outpatient (CLI) | payer MEDICARE, OTHER ==
[2019-10-07 13:19] VITALS: RESP 16
[2019-10-07 14:14] VITALS: BMI 43.7
[2019-10-07 14:20] VITALS: BP 156/93; PULSE 89; TEMP 98.1
--- NOTE | 2019-10-07 14:49 | P.PN ---
Subjective Progress Note Date: 10/07/19 DATE OF SERVICE: 10/07/2019 CHIEF COMPLAINT: Status post sleeve gastrectomy HISTORY OF PRESENT ILLNESS: Gopal Tapia is a 44-year-old male status post sleeve gastrectomy, 08/31/19. He is 1 1 month out. His protein intake is barely 75 g daily. He reports drinking alcohol at least 10 beers weekly. He also has cravings for nicotine. No reports of abdominal pain. No reports of gastroesophageal reflux disease. Otherwise he reports he is doing well. At height of 5 feet 10 inches, his ideal body weight is 173 pounds. Highest weight of 335 pounds, BMI 48.2. He comes in 304 pound from 321 pounds, 3 weeks ago. He has lost 17 pounds in 3 weeks. His body mass index is down to 43.82. Lifetime weight loss of 31 pounds. Lifetime percent excess weight loss of 19 %. He is 131 pounds overweight. PHYSICAL EXAM: VITAL SIGNS: Height 5 foot 10 inches, weight 304 pounds. BMI 43.8 Vital Signs Temp 98.1 F 10/07/19 13:17 Pulse 89 10/07/19 13:17 Resp 16 10/07/19 13:17 BP 156/93 10/07/19 13:17 Pulse Ox Intake & Output 10/06/19 10/07/19 10/07/19 18:59 06:59 18:59 Weight 138.346 kg GENERAL: Well-developed in no acute distress. HEENT: No scleral icterus. Extraocular movements grossly intact. Hears conversational speech. No nasal drainage. NECK: Supple without lymphadenopathy. CHEST: Nonlabored respirations with equal bilateral excursions. CARDIOVASCULAR: Distal 2+ pulses. ABDOMEN: Abdomen soft nontender. No hernias. MUSCULOSKELETAL: No clubbing, cyanosis. NEURO: No focal or lateralizing signs. Cranial nerves 2 through 12 grossly within normal limits. PSYCH: Appropriate affect. Alert and oriented to person, place and time. SKIN: Good skin turgor. Well perfused. ASSESSMENT: 1. Morbid obesity due to excess calories 2. Body mass index of 48.2 to 43.8 3. Osteoarthritis of the knees. 4. Osteoarthritis of the shoulder 5. Hypertensive heart disease. 6. Gastroesophageal reflux disease 7. Hyperlipidemia 8. Obstructive sleep apnea 9. Anxiety disorder 10. Chronic pain syndrome 11. Depressive disorder 12. H. pylori infection 13. Status post gastric bypass 14. Tobacco abuse 15. Alcohol abuse PLAN: 1. He was counseled against alcohol abuse with 10+ beers weekly. Risk of weight re-gain and slow weight loss was reviewed. 2. Additionally, he wants to get to 250 pounds in 3 months. Recommend bariatric labs. Objective - Vital Signs Vital signs: Vital Signs Temp 98.1 F 10/07/19 13:17 Pulse 89 10/07/19 13:17 Resp 16 10/07/19 13:17 BP 156/93 10/07/19 13:17 Pulse Ox Intake & Output 10/06/19 10/07/19 10/07/19 18:59 06:59 18:59 Weight 138.346 kg
== END | disposition home or self-care (01) ==
LOC: BARWHC3 12:48
PROVIDERS: ATTEND Surgery Plastic and Reconstructive Surgery
DX: E66.01 Morbid (severe) obesity due to excess calories (principal); Z68.41 Body mass index [BMI] 40.0-44.9, adult; M17.0 Bilateral primary osteoarthritis of knee; M19.019 Primary osteoarthritis, unspecified shoulder; I11.9 Hypertensive heart disease without heart failure; K21.9 Gastro-esophageal reflux disease without esophagitis; E78.5 Hyperlipidemia, unspecified; G47.33 Obstructive sleep apnea (adult) (pediatric); F41.9 Anxiety disorder, unspecified; G89.4 Chronic pain syndrome; F32.9 Major depressive disorder, single episode, unspecified; B96.81 Helicobacter pylori [H. pylori] as the cause of diseases classified elsewhere; F10.10 Alcohol abuse, uncomplicated; Z72.0 Tobacco use; Z98.84 Bariatric surgery status
CPT/HCPCS: 97803; G0463; 99211

== ENCOUNTER → 2020-02-03 | Outpatient (CLI) | payer MEDICARE, OTHER ==
--- NOTE | 2020-01-13 17:07 | P.PN ---
Subjective Progress Note Date: 01/13/20 The patient left without being seen
== END | disposition home or self-care (01) ==
LOC: BARWHC3 01-13 13:50
PROVIDERS: ATTEND Surgery Plastic and Reconstructive Surgery
DX: Z53.29 Procedure and treatment not carried out because of patient's decision for other reasons (principal)
CPT/HCPCS: 99211